=== PATIENT | male | born 1965 | race Two or more races ===

== ENCOUNTER → 2023-10-10 | Day surgery (SDC) | payer MEDICAID ==
[2023-10-03 09:39] LABS: Urine Bacteria None Seen /hpf (None Seen)
[2023-10-03 09:41] LABS: Basophils # (auto) 0 10 ^3/uL (0-0.2); Basophils % (auto) 0.3 % (0.0-2.0); Eosinophils # (auto) 0 10 ^3/uL (0-0.8); Eosinophils % (auto) 0.3 % (0.0-7.0); Hematocrit 44.9 % (41.0-53.0); Hemoglobin 14.7 g/dL (13.5-17.5); Lymphocytes # (auto) 2.3 10 ^3/uL (0.4-5.4); Lymphocytes % (auto) 30.6 % (10.0-50.0); Mean Corpuscular Hemoglobin 31.1 pg (28.0-32.0); Mean Corpuscular Hgb Conc. 32.7 g/dL (32.0-36.0); Mean Corpuscular Volume 95.2 fL (80.0-100.0); Monocytes # (auto) 0.6 10 ^3/uL (0-1.3); Monocytes % (auto) 7.6 % (0.0-12.0); Neutrophils # (auto) 4.6 10 ^3/uL (1.6-8.6); Neutrophils % (auto) 61.2 % (37.0-80.0); Nucleated Red Blood Cells % 0.1 %; Red Blood Cells 4.71 10^6/uL (4.5-5.90); Red Cell Distribution Width 12.8 % (11.8-14.3); White Blood Cell 7.4 10^3/uL (4.4-10.8)
[2023-10-03 10:03] LABS: INR 0.99 (0.9-1.15); Partial Thromboplastin Time 24.2 SEC (24.5-34.5); Prothrombin Time 10.4 sec (9.3-11.8)
[2023-10-03 10:04] LABS: Urine Blood Negative /uL (Negative); Urine Clarity Clear (Clear); Urine Color Light-Yellow (Yellow); Urine Protein, UAD Negative (Negative); Urine Specific Gravity 1.013 (1.001-1.035); Urine Urobilinogen Normal (Negative); Urine WBC <1 /hpf (0 - 3)
[2023-10-03 10:26] LABS: Alanine Aminotransferase 51 U/L (7-40); Albumin 4.2 g/dL (3.2-4.8); Alkaline Phosphatase 49 U/L (46-116); Anion Gap 6 (5-15); Aspartate Aminotransferase 22 U/L (13-40); BUN/Creatinine Ratio 10.3 (10.0-20.0); Blood Urea Nitrogen 12 mg/dL (9-23); Calcium 9.5 mg/dL (8.5-10.1); Carbon Dioxide 31 mmol/L (20-30); Chloride 103 mmol/L (98-107); Glucose 262 mg/dL (74-106); Potassium 4.2 mmol/L (3.5-5.1); Sodium 140 mmol/L (136-145)
[2023-10-03 10:27] LABS: Bilirubin, Total 0.6 mg/dL (0.2-1.0); Total Protein 6.6 g/dL (5.7-8.2)
[~2023-10-10] VITALS: Ht 167.6 cm; Wt 113.4 kg
[~2023-10-10] MED LIST: ASPI81CH43; CAPT12.52; GLYCOPYRROLATE 0.2 MG/ML 1ML VIAL ONE; LOSA-533 PO; METF-370; METH-562; MIDAZOLAM HCL 2MG/2ML 2ml VIAL (1mg/ml) ONE; OMEGCAP28; ONDANSETRON HCL 4 MG/2 ML VIAL ONE; PANT40T PO; PREDPOW63; PROPOFOL 10 MG/ML 20 ML IV ONE; [UNRECOGNIZED DRUG - CODE]; fentaNYL CITRATE 100 MCG/2 ML VL ONE
[2023-10-10 09:54] VITALS: TEMP 97.4; O2SAT 98
[2023-10-10 10:22] VITALS: BP 118/80; PULSE 81; RESP 14; O2SAT 94
== END | disposition home or self-care (01) ==
LOC: GI 08:11
PROVIDERS: ATTEND Internal Medicine Gastroenterology
DX: R12 Heartburn (principal); K29.50 Unspecified chronic gastritis without bleeding; I10 Essential (primary) hypertension; E11.9 Type 2 diabetes mellitus without complications; E78.5 Hyperlipidemia, unspecified; Z79.84 Long term (current) use of oral hypoglycemic drugs; Z79.899 Other long term (current) drug therapy; Z98.890 Other specified postprocedural states
CPT/HCPCS: 36415; 43239; 80053; 81001; 82962; 85025; 85610; 85730; 88305; 88312; 88342; J2250; J2405; J2704; J3010; J7030

== ENCOUNTER 2023-11-10 10:06 | Emergency (ER) | payer MEDICAID ==
[~2023-11-10] VITALS: Ht 170.2 cm; Wt 109.8 kg
[~2023-11-10 10:06] MED LIST changes: -GLYCOPYRROLATE 0.2 MG/ML 1ML VIAL ONE; -MIDAZOLAM HCL 2MG/2ML 2ml VIAL (1mg/ml) ONE; -ONDANSETRON HCL 4 MG/2 ML VIAL ONE; -PROPOFOL 10 MG/ML 20 ML IV ONE; -fentaNYL CITRATE 100 MCG/2 ML VL ONE
[2023-11-10 10:45] VITALS: BP 122/75; PULSE 102; RESP 18; TEMP 98.2; O2SAT 97
[2023-11-10 11:19] LABS: Urine Bacteria FEW /hpf (None Seen); Urine Blood Negative /uL (Negative); Urine Clarity Hazy (Clear); Urine Color Yellow (Yellow); Urine Hyaline Cast FEW /lpf (0 - 2); Urine Mucus FEW (None Seen); Urine Protein, UAD 1+ (Negative); Urine Specific Gravity 1.046 (1.001-1.035); Urine Urobilinogen 4 mg/dL (Negative); Urine WBC 5 /hpf (0 - 3)
[2023-11-10] MEDS ORDERED: NITR-87 PO (11:40)
[2023-11-10] MEDS ORDERED: ACYC400T16 PO (13:34)
[2023-11-12 11:07] LABS: RPR Non Reactive (Non Reactive)
[2023-11-12 16:06] LABS: Chlamydia Trachomatis, NAA Negative (Negative); Neisseria gonorrhoeae, NAA Negative (Negative)
== END 2023-11-10 11:48 | disposition home or self-care (01) ==
LOC: ER 10:13
DX: R21 Rash and other nonspecific skin eruption (principal); I10 Essential (primary) hypertension; E11.9 Type 2 diabetes mellitus without complications; Z79.899 Other long term (current) drug therapy
CPT/HCPCS: 81001; 86592; 86703

== ENCOUNTER 2024-08-11 10:09 | Inpatient (IN) | payer MEDICAID ==
[~2024-08-11] VITALS: Ht 165.1 cm; Wt 96.5 kg
[~2024-08-11 10:09] MED LIST changes: +ACYC400T16 PO; +NITR-87 PO
--- NOTE | 2024-08-11 10:44 | ED.PDOC ---
Back pain HPI HPI Comments 59 y/o M, with PMHX of HTN and DM presents to the ED for CC of back pain. Patient states, that he has been experiencing lumbar back pain that radiates to his upper back since 08/04/24 with associated symptoms of constipation and dysuria. Patient comments on, using a forklift at work daily and when unloading the forklift it bounces back causing pain to his lower back. Patient denies trauma, musculoskeletal strain, nausea, vomiting, or diarrhea. No other symptoms or modifying factors at this time. Chief Complaint: Back Pain Time Seen by MD: 10:30 Primary Care Provider: MAEGAN Reviewed Notes: Nurses Notes, Medications, Allergies Allergies: Coded Allergies: NO KNOWN ALLERGIES (Unverified , 02/04/12) Home Meds Active Scripts Acyclovir (ZOVIRAX TABLET) 400 Mg Tb, 2 TAB PO TID for 5 Days, #30 TAB 0 Refills Prov:TONIA MANRIQUE CLINICAL RESEARCH ASSISTANT 11/10/23 Nitrofurantoin Monohydrate Mac (Macrobid) 100 Mg Cap, 100 MG PO BID for 5 Days, #10 CAP 0 Refills Prov:TONIA MANRIQUE CLINICAL RESEARCH ASSISTANT 11/10/23 Reported Medications Losartan Potassium (Losartan Potassium) 25 Mg Tab, 25 MG PO DAILY, TAB 10/02/23 Pantoprazole Sodium Sesquihydr (Pantoprazole Sodium) 40 Mg Tab, 40 MG PO DAILY, TAB 10/02/23 Belladonna Alkaloids-Phenobarb (QUADRAPAX) Elx 02/04/12 Dawn 3 Fatty Acids-Dawn 6 Fa (OMEGA 3-6-9 COMPLEX) Complex Cap 02/04/12 Captopril (Captopril) Unknown Strength Tab 02/04/12 Metformin Hydrochloride (Metformin Hcl) 500 Mg Tab, DAILY 02/04/12 Methocarbamol (Robaxin) 500 Mg Tab 02/04/12 Aspirin (Asa) 81 Mg Ch 02/04/12 [Prednisone] (Prednisone) No Conflict Check 02/04/12 Information Source: Patient Mode of Arrival: Ambulatory Timing: Days Duration: Since onset Location of Back pain: (B) Lumbar, (B) Thoracic, (B) Upper back Severity: Moderate Prehospital treatment: None Onset: Spontaneous Associated signs and symptoms: Dysuria Past Medical History PAST MEDICAL HISTORY: DM, HTN Surgical History: Denies all surgeries Family History Family History: Family hx of Cancer Social History Smoker: Non-Smoker Alcohol: Denies ETOH Use Drugs: Denies Drug Use Lives In: Home Constitutional: denies: chills, diaphoresis, fatigue, fever, malaise, sweats, weakness, others EENTM: denies: blurred vision, double vision, ear bleeding, ear discharge, ear drainage, ear pain, ear ringing, eye pain, eye redness, hearing loss, mouth pain, mouth swelling, nasal discharge, nose bleeding, nose congestion, nose pain, photophobia, tearing, throat pain, throat swelling, voice changes, others Respiratory: denies: cough, hemoptysis, orthopnea, SOB at rest, shortness of breath, SOB with excertion, stridor, wheezing, others Cardiovascular: denies: chest pain, dizzy spells, diaphoresis, Dyspnea on exertion, edema, irregular heart beat, left arm pain, lightheadedness, palpitations, PND, syncope, others Gastrointestinal: denies: abdomen distended, abdominal pain, blood streaked bowels, constipated, diarrhea, dysphagia, difficulty swallowing, hematemesis, melena, nausea, poor appetite, poor fluid intake, rectal bleeding, rectal pain, vomiting, others Genitourinary: reports: dysuria; denies: burning, flank pain, frequency, hematuria, incontinence, penile discharge, penile sore, pain, testicle pain, testicle swelling, urgency, others Neurological: denies: dizziness, fainting, headache, left sided numbness, left sided weakness, numbness, paresthesia, pre-existing deficit, right sided numbness, right sided weakness, seizure, speech problems, tingling, tremors, weakness, others Musculoskeletal: reports: back pain; denies: gout, joint pain, joint swelling, muscle pain, muscle stiffness, neck pain, others Integumetry: denies: bruises, change in color, change in hair/nails, dryness, laceration, lesions, lumps, rash, wounds, others Allergic/Immunocompromised: denies: Difficulty Healing, Frequent Infections, Hives, Itching, others Hematologic/Lymphatic: denies: anemia, blood clots, easy bleeding, easy bruising, swollen glands, others Endocrine: denies: excessive hunger, excessive sweating, excessive thirst, excessive urination, flushing, intolerance to cold, intolerance to heat, unexplained weight gain, unexplained weight loss, others Psychiatric: denies: anxiety, bipolar disorder, depression, hopeless, panic disorder, schizophrenia, sleepless, suicidal, others All Other Systems: Reviewed and Negative Physical Exam General Appearance: Moderate Distress HEENT: Normal ENT Inspection, Pharynx Normal, TMs Normal Neck: Full Range of Motion, Non-Tender, Normal, Normal Inspection Respiratory: Chest Non-Tender, Lungs Clear, No Accessory Muscle Use, No Respiratory Distress, Normal Breath Sounds Cardiovascular: No Edema, No JVD, No Murmur, No Gallop, Normal Peripheral Pulses, Regular Rate/Rhythm Breast Exam: Deferred Gastrointestinal: No Organomegaly, Non Tender, No Pulsatile Mass, Normal Bowel Sounds, Soft Genitalia: Deferred Pelvic: Deferred Rectal: Deferred Extremities: No calf tenderness, Normal capillary refill, No pedal edema Musculoskeletal : Apperance: Normal Neurologic: Alert, ultrasound applications specialist II-XII nml as Tested, No Motor Deficits, Normal Affect, Normal Mood, No Sensory Deficits Cerebellar Function: Normal Reflexes: Normal Skin: Dry, Normal Color, Warm Lymphatic: No Adenopathy Was a procedure done? Was a procedure done?: No Back Pain Differential Dx Differential Diagnosis: Musculoskeletal Pain, Pyelonephritis, Urolithiasis X-Ray, Labs, Meds, VS Vital Signs Date Time Temp Pulse Resp B/P (MAP) Pulse Ox O2 Delivery O2 Flow Rate FiO2 08/11/24 12:05 Room Air* 0 21 08/11/24 10:14 97.8 115 20 92/54 (67) 99 Lab Test 08/11/24 10:34 Range/Units White Blood Count 22.3 H 4.4-10.8 10^3/uL Red Blood Count 4.60 4.5-5.90 10^6/uL Hemoglobin 13.8 13.5-17.5 g/dL Hematocrit 42.0 41.0-53.0 % Mean Corpuscular Volume 91.4 80.0-100.0 fL Mean Corpuscular Hemoglobin 30.1 28.0-32.0 pg Mean Corpuscular Hemoglobin Concent 32.9 32.0-36.0 g/dL Red Cell Distribution Width 13.3 11.8-14.3 % Platelet Count 434 140-450 10^3/uL Mean Platelet Volume 7.4 6.9-10.8 fL Neutrophils (%) (Auto) 37.0-80.0 % Lymphocytes (%) (Auto) 10.0-50.0 % Monocytes (%) (Auto) 0.0-12.0 % Basophils (%) (Auto) 0.0-2.0 % Neutrophils # (Auto) 1.6-8.6 10 ^3/uL Lymphocytes # (Auto) 0.4-5.4 10 ^3/uL Monocytes # (Auto) 0-1.3 10 ^3/uL Differential Total Cells Counted Pending Neutrophils % (Manual) Pending Band Neutrophils % (Manual) Pending Lymphocytes % (Manual) Pending Monocytes % (Manual) Pending Eosinophils % (Manual) Pending Basophils % (Manual) Pending Metamyelocytes % (manual) Pending Myelocytes % (Manual) Pending Promyelocytes % (Manual) Pending Blast Cells % (Manual) Pending Reactive Lymphocytes Pending Platelet Estimate Pending Sodium Level 137 136-145 mmol/L Potassium Level 3.9 3.5-5.1 mmol/L Chloride Level 101 98-107 mmol/L Carbon Dioxide Level 26 20-31 mmol/L Anion Gap 10 5-15 Blood Urea Nitrogen 20 9-23 mg/dL Creatinine 1.30 0.700-1.30 mg/dL Glomerular Filtration Rate Calc 63 >90 mL/min BUN/Creatinine Ratio 15.4 10.0-20.0 Serum Glucose 186 H 74-106 mg/dL Calcium Level 9.7 8.7-10.4 mg/dL Current Medications Medications (Trade) Dose Ordered Sig/Canelo Route Start Time Stop Time Status Last Admin Ketorolac Tromethamine (Toradol Injection) 60 mg ONCE ONCE IM 08/11/24 10:45 08/11/24 10:46 DC 08/11/24 11:37 CT ABD PEL: FINDINGS: Lower Chest: Base of the lungs are clear. The heart is normal in size. Coronary artery calcification. Hepatobiliary: Hepatomegaly and hepatic steatosis. Slight nodular liver contour. No calcified gallstone. No intrahepatic or extrahepatic ductal dilatation. Spleen: Unremarkable. Pancreas: Unremarkable. Adrenal Glands: Unremarkable. tract: The kidneys are normal in size bilaterally without hydronephrosis or nephrolithiasis. The urinary bladder is unremarkable. GI tract: The stomach is grossly normal in appearance. No evidence of small bowel obstruction. The large bowel is unremarkable. A large, 12.1 x 6.3 x 8.5 cm complex fluid and air collection noted adjacent to the rectum with surrounding inflammation likely an abscess. A 5.1 x 1.5 cm perianal fluid collection is seen likely an abscess or fistula. The appendix is normal. Lymphatics: No mesenteric, retroperitoneal or periportal lymphadenopathy. Vasculature: The abdominal aorta is normal in in caliber. Pelvic Organs: Unremarkable Bones/soft tissues: No acute abnormality. Other: None. IMPRESSION: 1. Large, 12.1 x 8.5 cm complex fluid and air collection adjacent to the rectum concerning for an abscess. Evaluation is limited without IV contrast. Recommend further evaluation with pelvic CT scan with IV contrast or pelvic MRI without and with IV contrast. 2. A 5.1 x 1.5 cm right perianal fluid collection that may represent a fistula or abscess. This can be better delineated in the contrast-enhanced study. ATED BY: DODIE CROSS MD DICTATED DATE/TIME: 08/11/24 112 SIGNED BY: DODIE CROSS MD SIGNED DATE/TIME: 08/11/24 112 CC: IV Hep-Lock was established. We are concerned that this is an abscess. We are getting a CT scan with IV contrast to rule out possible abscess. The CBC shows an elevated white blood cell count of 22.3 The rest of the CBC is within normal limits The chemistry panel is within normal limits The patient was given initially Toradol 60 mg IM The patient was being admitted at this time with what seems to be a perirectal abscess Images Reviewed?: Images reviewed and evaluated by me Time of 1ST Reevaluation: 11:00 Reevaluation 1ST: Unchanged Patient Education/Counseling: Diagnosis, Treatment, Prognosis Family Education/Counseling: No Family Present Departure 1 Departure Time of Disposition: 12:29 Impression: Primary Impression: Perirectal abscess Additional Impression: Intractable back pain Disposition: ADMITTED INPATIENT Admit to: Med Surg Condition: Fair Critical Care Note Critical Care Time?: No Stability Stability form required: Yes Unstable for transfer: ED Physician Assesment (Clinical assesment) Heart Score Heart Score: Heart Score Response (Comments) Value History N/A 0 EKG N/A 0 Age N/A 0 Risk Factors N/A 0 Troponin N/A 0 Total 0 I personally scribed for MARTIN ERWIN MD ([email or web address]) on 08/11/24 at 10:44. Electronically submitted by Karen Mclaughlin ([email or web address]). I personally scribed for MARTIN ERWIN MD ([email or web address]) on 08/11/24 at 11:37. Electronically submitted by Karen Mclaughlin ([email or web address]). MARTIN ERWIN MD Aug 11, 2024 10:44
[2024-08-11 11:18] LABS: Hemoglobin 13.8 g/dL (13.5-17.5); Mean Corpuscular Hemoglobin 30.1 pg (28.0-32.0); Mean Corpuscular Hgb Conc. 32.9 g/dL (32.0-36.0); Mean Corpuscular Volume 91.4 fL (80.0-100.0); Platelet Count (auto) 434 10^3/uL (140-450); Red Cell Distribution Width 13.3 % (11.8-14.3); White Blood Cell 22.3 10^3/uL (4.4-10.8)
--- NOTE | 2024-08-11 11:25 | DVH ---
Procedure: CT CT AB PEL WO CON-NO ORAL OR IV 08/11/2024 10:38 AM Indication: pain Comparison Study: None Technique: Axial images were obtained and reformatted in coronal and sagittal planes. All CT scans at this medical facility are performed using dose modulation techniques as appropriate to a performed e xam including the following: Automated exposure control was utilized; adjustment of the MA and/or KV according to patient size; and use of iterative reconstruction technique. CT Dose: CTDI volume is 20 mGy. Dose-length product is 1369 mGy*cm FINDINGS: Lower Chest: Base of the lungs are clear. The heart is normal in size. Coronary artery calcification. Hepatobiliary: Hepatomegaly and hepatic steatosis. Slight nodular liver contour. No calcified gallsto ne. No intrahepatic or extrahepatic ductal dilatation. Spleen: Unremarkable. Pancreas: Unremarkable. Adrenal Glands: Unremarkable. tract: The kidneys are normal in size bilaterally without hydronephrosis or nephrolithiasis. The u rinary bladder is unremarkable. GI tract: The stomach is grossly normal in appearance. No evidence of small bowel obstruction. The la rge bowel is unremarkable. A large, 12.1 x 6.3 x 8.5 cm complex fluid and air collection noted adjace nt to the rectum with surrounding inflammation likely an abscess. A 5.1 x 1.5 cm perianal fluid colle ction is seen likely an abscess or fistula. The appendix is normal. Lymphatics: No mesenteric, retroperitoneal or periportal lymphadenopathy. Vasculature: The abdominal aorta is normal in in caliber. Pelvic Organs: Unremarkable Bones/soft tissues: No acute abnormality. Other: None. IMPRESSION: 1. Large, 12.1 x 8.5 cm complex fluid and air collection adjacent to the rectum concerning for an abs cess. Evaluation is limited without IV contrast. Recommend further evaluation with pelvic CT scan w ith IV contrast or pelvic MRI without and with IV contrast. 2. A 5.1 x 1.5 cm right perianal fluid collection that may represent a fistula or abscess. This can b e better delineated in the contrast-enhanced study.
[2024-08-11] MEDS: KETOROLAC TROMETH 60MG/2ML VIAL IM ONE (11:37)
[2024-08-11 12:07] LABS: Basophils % (manual) 0 (0.0-2.0); Blast Cells 0; Eosinophils % (manual) 0 (0-7); Metamyelocytes % 0; Myelocytes % 0; Promyelocytes % 0; Reactive Lymphocytes 0
[2024-08-11 12:08] LABS: Chloride 101 mmol/L (98-107); Potassium 3.9 mmol/L (3.5-5.1); Sodium 137 mmol/L (136-145)
[2024-08-11 12:09] LABS: Anion Gap 10 (5-15); Calcium 9.7 mg/dL (8.7-10.4); Carbon Dioxide 26 mmol/L (20-31)
[2024-08-11 12:14] LABS: BUN/Creatinine Ratio 15.4 (10.0-20.0); Blood Urea Nitrogen 20 mg/dL (9-23)
[2024-08-11 12:15] LABS: Glucose 186 mg/dL (74-106)
[2024-08-11] MEDS: VANCOMYCIN 1GM/250ML KIT 250 ML IV ONE (12:46)
[2024-08-11] MEDS: metroNIDAZOLE 500MG/100ML 100 ML IV ONE (12:46)
[2024-08-11] MEDS: IOHEXOL 300 MG/ML 100ML BOTTLE IJ ONE (12:48)
--- NOTE | 2024-08-11 13:15 | DVH ---
Exam: CT CT AB PEL WITH IV CON ONLY History: Possible abscess TECHNIQUE: A digital spiral spring winder image was obtained. During the uneventful, intravenous administration of c ontrast material, multislice data acquisition was obtained through the abdomen and pelvis. The data s et was subsequently reconstructed into axial images. Images were reviewed on a work station using a c ombination of axial and multiplanar using a variety of window levels and settings. 100 cc of Omnipaqu e 300 contrast was injected intravenously. All CT scans at this medical facility are performed using dose modulation techniques as appropriate t o a performed exam including the following:Automated exposure control was utilized; adjustment of the MA and/or KV according to patient size; and use of iterative reconstruction technique. Radiation Dose Information: CT Dose: CTDI volume is 23 mGy. Dose-length product is 16 17 mGy*cm Comparison: None FINDINGS: There is a an approximately 12.5 x 8.1 by 9.2 cm (AP by transverse by cc) loculated abscess with flui d, pockets of air and enhancing mayes in the inferior pelvis adjacent to the rectum and anus. There is inferior extension of the abscess into the posterior perineum. The small and large bowel loops dem onstrate normal caliber. There is no significant mount free fluid or free air. There is diffuse fatty infiltration of the liver. The gallbladder, pancreas, kidneys, adrenal glands, and spleen appear within normal limits. There is no evidence of abdominal lymphadenopathy. The stomach grossly appears unremarkable. The abdominal aorta and IVC appear within normal limits. The bladder appears within normal limits the degree of distention. There is no evidence of a pelvic mass or lymphadenopathy. Lung bases are clear. There is no acute osseous abnormality. IMPRESSION: 1. Approximately 12.5 x 8.1 cm loculated abscess in the inferior pelvis adjacent to the rectum and an us with inferior extension into the posterior perineum. Consider treatment with CT guided aspiration . 2. Hepatic steatosis. HS:Y
[2024-08-11 14:25] LABS: Band Neutrophils % (manual) 2; Lymphocytes % (manual) 11 (10.0-50.0); Monocytes % (manual) 5 (0-12)
[2024-08-11 14:26] LABS: Platelet Estimate Adequate
[2024-08-11] MEDS ORDERED: ONDANSETRON HCL 4 MG/2 ML VIAL IV PRN (15:15)
[2024-08-11] MEDS ORDERED: HYDROcodone-ACET 5/325MG TAB PO PRN (15:15)
[2024-08-11] MEDS ORDERED: DEXTROSE (50%) 50ML SYRG IV PRN ×2 (15:15→15:30)
[2024-08-11] MEDS ORDERED: MORPHINE SULFATE INJ 2 MG/ml SYRG IV PRN (15:15)
[2024-08-11] MEDS ORDERED: DOCUSATE SOD 100 MG CAP PO PRN (15:15)
[2024-08-11] MEDS ORDERED: ACETAMINOPHEN 325 MG TAB PO PRN (15:15)
[2024-08-11] MEDS ORDERED: METF-371 PO (15:19)
[2024-08-11] MEDS ORDERED: ATOR20TA50 PO (15:19)
[2024-08-11] MEDS ORDERED: VANCOMYCIN PER PHARMACY 0 MG IV SCH (16:00)
--- NOTE | 2024-08-11 16:10 | DVHHP2 ---
History of Present Illness Reason for Visit: Low back/buttock pain History of Present Illness Yves Somers is a 59-year-old male with past medical history of hypertension, hyperlipidemia, arthritis, and diabetes who came in for low back/buttock pain. Patient states his symptoms began about 2 weeks ago with painful urination, then about a week ago his back pain began, and now his pain has worsened and progressed to his buttock 3 days ago. Patient also states he has not had a bowel movement for 3 days. Patient's pain has increased to the point that he is unable to sit. CT of abd/pelvis revealed a large perrectal abscess. IR was notified and and agreed to take the patient tomorrow morning for abscess drainage and possible drain placement. Cardiovascular: HTN, hyperipidemia Musculoskeletal: Osteoarthritis Endocrine: Diabetes Past Surgical History: Hernia Repair Smoke: No ALCOHOL: none Drugs: None Lives: with Family Domestic Violence: Neg Review of Systems Constitutional: No: Fever, Chills, Sweats, Weakness, Malaise, Other Eyes: No: Pain, Vision change, Conjunctivae inflammation, Eyelid inflammation, Other, Redness ENT: No: Ear pain, Ear discharge, Nose pain, Nose discharge, Nose congestion, Mouth pain, Mouth swelling, Throat pain, Throat swelling, Other Respiratory: No: Cough, Dry, Shortness of breath, SOB with excertion, Wheezing, Hemoptysis, Pleuritic Pain, Sputum, Wheezing, Other Cardiovascular: No: Chest Pain, Palpitations, Orthopnea, Paroxysmal Noc. Dyspnea, Edema, Lt Headedness, Other Gastrointestinal: Constipation; No: Nausea, Vomiting, Abdominal Pain, Diarrhea, Melena, Hematochezia, Other Genitourinary: No Dysuria, No Frequency, No Incontinence, No Hematuria, No Retention, No Other Musculoskeletal: back pain (low back/buttock pain); No: other, neck pain, shoulder pain, arm pain, hand pain, leg pain, foot pain Skin: No: Rash, Lesions, Jaundice, Bruising, Other Neurological: No: Weakness, Numbness, Incoordination, Change in speech, Confusion, Seizures, Other Allergies: Coded Allergies: NO KNOWN ALLERGIES (Unverified , 02/04/12) Medications Current Medications Medications Dose Ordered Sig/Canelo Route Start Time Stop Time Status Last Admin Dose Admin Sodium Chloride 10 ml Q8HR IV 08/11/24 22:00 UNV Ondansetron HCl 4 mg Q4HP PRN IV 08/11/24 15:30 UNV Morphine Sulfate 2 mg Q4HPRN PRN IV 08/11/24 15:30 UNV Insulin Human Regular HS SC 08/11/24 22:00 UNV Insulin Human Regular AC SC 08/11/24 17:00 UNV Dextrose 50 ml UD PRN IV 08/11/24 15:30 UNV Acetaminophen/ Hydrocodone Bitart 1 tab Q4HP PRN PO 08/11/24 15:30 UNV Docusate Sodium 100 mg BIDPRN PRN PO 08/11/24 15:30 UNV Acetaminophen 650 mg Q6HP PRN PO 08/11/24 15:30 UNV Diagnostic Test (Pha) 1 strip ACHS 08/11/24 17:00 UNV Exam Vital Signs Vital Signs Date Time Temp Pulse Resp B/P (MAP) Pulse Ox O2 Delivery O2 Flow Rate FiO2 08/11/24 12:05 Room Air* 0 21 08/11/24 10:14 97.8 115 20 92/54 (67) 99 General Appearance: Alert, Oriented X3, Cooperative, moderate distress HEENT: Atraumatic, PERRLA, Mucous membr. moist/pink Respiratory: Clear to auscultation, Normal air movement Cardiovascular: Normal S1, Normal S2, No murmurs, Other (Tachycardia) Abdominal: Normal bowel sounds, Soft, No tenderness Extremities: No clubbing, No cyanosis, No edema, Normal pulses, No tenderness/swelling, Other (low back/buttock pain and swelling) Skin: No rashes, No breakdown, No significant lesion Neuro: Normal gait, Normal speech, Strength at 5/5 X4 ext, Normal tone Psych/Mental Status: Mental status NL, Mood NL Labs/Xrays Labs Test 08/11/24 13:00 08/11/24 10:34 Range/Units Lactic Acid Level 1.4 0.4-2.0 mmol/L White Blood Count 22.3 H 4.4-10.8 10^3/uL Red Blood Count 4.60 4.5-5.90 10^6/uL Hemoglobin 13.8 13.5-17.5 g/dL Hematocrit 42.0 41.0-53.0 % Mean Corpuscular Volume 91.4 80.0-100.0 fL Mean Corpuscular Hemoglobin 30.1 28.0-32.0 pg Mean Corpuscular Hemoglobin Concent 32.9 32.0-36.0 g/dL Red Cell Distribution Width 13.3 11.8-14.3 % Platelet Count 434 140-450 10^3/uL Mean Platelet Volume 7.4 6.9-10.8 fL Neutrophils (%) (Auto) 37.0-80.0 % Lymphocytes (%) (Auto) 10.0-50.0 % Monocytes (%) (Auto) 0.0-12.0 % Basophils (%) (Auto) 0.0-2.0 % Neutrophils # (Auto) 1.6-8.6 10 ^3/uL Lymphocytes # (Auto) 0.4-5.4 10 ^3/uL Monocytes # (Auto) 0-1.3 10 ^3/uL Differential Total Cells Counted 100.0 100 Neutrophils % (Manual) 82 H 37.0-80.0 Band Neutrophils % (Manual) 2 Lymphocytes % (Manual) 11 10.0-50.0 Monocytes % (Manual) 5 0-12 Eosinophils % (Manual) 0 0-7 Basophils % (Manual) 0 0.0-2.0 Metamyelocytes % (manual) 0 Myelocytes % (Manual) 0 Promyelocytes % (Manual) 0 Blast Cells % (Manual) 0 Reactive Lymphocytes 0 Platelet Estimate Adequate Sodium Level 137 136-145 mmol/L Potassium Level 3.9 3.5-5.1 mmol/L Chloride Level 101 98-107 mmol/L Carbon Dioxide Level 26 20-31 mmol/L Anion Gap 10 5-15 Blood Urea Nitrogen 20 9-23 mg/dL Creatinine 1.30 0.700-1.30 mg/dL Glomerular Filtration Rate Calc 63 >90 mL/min BUN/Creatinine Ratio 15.4 10.0-20.0 Serum Glucose 186 H 74-106 mg/dL Calcium Level 9.7 8.7-10.4 mg/dL Exam: CT CT AB PEL WITH IV CON ONLY FINDINGS: There is a an approximately 12.5 x 8.1 by 9.2 cm (AP by transverse by cc) loculated abscess with fluid, pockets of air and enhancing mayes in the inferior pelvis adjacent to the rectum and anus. There is inferior extension of the abscess into the posterior perineum. The small and large bowel loops demonstrate normal caliber. There is no significant mount free fluid or free air. There is diffuse fatty infiltration of the liver. The gallbladder, pancreas, kidneys, adrenal glands, and spleen appear within normal limits. There is no evidence of abdominal lymphadenopathy. The stomach grossly appears unremarkable. The abdominal aorta and IVC appear within normal limits. The bladder appears within normal limits the degree of distention. There is no evidence of a pelvic mass or lymphadenopathy. Lung bases are clear. There is no acute osseous abnormality. IMPRESSION: 1. Approximately 12.5 x 8.1 cm loculated abscess in the inferior pelvis adjacent to the rectum and anus with inferior extension into the posterior perineum. Consider treatment with CT guided aspiration. 2. Hepatic steatosis. Assessment/Plan Assessment/Plan Assessment: Perirectal abscess, Leukocytosis, Uncontrolled diabetes, Hypertension, Plan: Admit to Med-Surg, Consult IR for abscess drainage, Consider surgical consult if IR unable to drain abscess, IV antibiotics, Blood cultures, IV hydration, Plan discussed with: Patient My Orders Orders - SANIA MCLEOD [employer] Procedure Category Date Status Time * Radiologist Consult CONS 08/11/24 Transmitted 15:12 Admit ADMIT 08/11/24 Transmitted 15:13 Code Status CODE 08/11/24 Transmitted 15:13 2 Gm Sodium Diet DIET 08/11/24 Transmitted Dinner Complete Blood Count LAB 08/12/24 Verified 04:00 Comprehensive LAB 08/12/24 Verified Metabolic Panel 04:00 Condition: Serious DEBRA 08/11/24 In Process 15:13 Sodium Chloride Lock PHA 08/11/24 Logged (Saline Lock Ns) 22:00 Ondansetron Hcl PHA 08/11/24 Logged (Zofran) 15:30 Morphine Sulfate PHA 08/11/24 Logged Injection 15:30 Insulin R (Human) PHA 08/11/24 Logged (Insulin R) 22:00 Insulin R (Human) PHA 08/11/24 Logged (Insulin R) 17:00 Dextrose 50% Syringe PHA 08/11/24 Logged 15:30 Hydrocodone-Acet PHA 08/11/24 Logged 5/325mg Tab ([place] 15:30 Docusate Sodium PHA 08/11/24 Logged Capsule (Colace 15:30 Acetaminophen Tablet PHA 08/11/24 Logged (Tylenol Tablet) 15:30 Glucose Blood PHA 08/11/24 Logged (Accu-Chek Comfort 17:00 Date of Service: Aug 11, 2024 Billing Provider: SANIA MCLEOD Common Visit Codes: [id number] INP/OBS CARE (MOD) SANIA MCLEOD Aug 11, 2024 16:10
[2024-08-11] MEDS ORDERED: InsuLIN REG 1unit/0.01ml Soln (100units/ml) SC SCH ×2 (17:00→22:00)
[2024-08-11] MEDS ORDERED: ACCU-CHEK COMFORT CURVE STRIP VI SCH (17:00)
[2024-08-11] MEDS: ACCU-CHEK COMFORT CURVE STRIP VI SCH (17:00)
[2024-08-11] MEDS: SODIUM CHLORIDE 0.9% 1,000 ML IV ONE (19:03)
[2024-08-11] MEDS: InsuLIN REG 1unit/0.01ml Soln (100units/ml) SC SCH ×2 (19:06→22:00)
[2024-08-11 19:09] LABS: Urine Bacteria None Seen /hpf (None Seen)
[2024-08-11 19:43] LABS: Urine Blood Negative /uL (Negative); Urine Clarity Clear (Clear); Urine Color Light-Yellow (Yellow); Urine Protein, UAD TRACE (Negative); Urine Squamous Epithelial Cell FEW /hpf (<5); Urine Urobilinogen Normal (Negative); Urine WBC 23 /HPF (0-3)
[2024-08-11 22:00] VITALS: PULSE 93; RESP 18; O2SAT 95
[2024-08-11] MEDS ORDERED: SODIUM CHLOR 0.9% PF (SALINE LOCK) 10ML VIAL/SYR IV SCH (22:00)
[2024-08-11] MEDS: SODIUM CHLOR 0.9% PF (SALINE LOCK) 10ML VIAL/SYR IV SCH (23:37)
[2024-08-11] MEDS: ATORVASTATIN 20 MG TAB PO SCH (23:42)
[2024-08-11] MEDS: PIPERACILLIN-TAZOB 3.375GM 100 ML IV SCH (23:48)
[2024-08-12] VITALS (7 sets, daily range): BP systolic 90–133; BP diastolic 42–60; PULSE 68–119; RESP 17–20; TEMP 98–100.7; O2SAT 94–100
[2024-08-12] MEDS: VANCOMYCIN 1GM/250ML KIT 250 ML IV SCH (03:17)
[2024-08-12] MEDS ORDERED: OMEP20TA PO (06:31)
[2024-08-12 07:09] LABS: Basophils # (auto) 0 10 ^3/uL (0-0.2); Basophils % (auto) 0.1 % (0.0-2.0); Eosinophils # (auto) 0 10 ^3/uL (0-0.8); Eosinophils % (auto) 0.1 % (0.0-7.0); Hematocrit 38.2 % (41.0-53.0); Lymphocytes # (auto) 2.5 10 ^3/uL (0.4-5.4); Lymphocytes % (auto) 11.3 % (10.0-50.0); Mean Corpuscular Hemoglobin 30.8 pg (28.0-32.0); Mean Corpuscular Hgb Conc. 33.9 g/dL (32.0-36.0); Mean Corpuscular Volume 90.8 fL (80.0-100.0); Monocytes # (auto) 1.5 10 ^3/uL (0-1.3); Monocytes % (auto) 6.8 % (0.0-12.0); Neutrophils # (auto) 18.4 10 ^3/uL (1.6-8.6); Neutrophils % (auto) 81.7 % (37.0-80.0); Platelet Count (auto) 352 10^3/uL (140-450); Red Cell Distribution Width 13.6 % (11.8-14.3); White Blood Cell 22.4 10^3/uL (4.4-10.8)
[2024-08-12 07:15] LABS: Alanine Aminotransferase 80 U/L (7-40); Albumin 3.6 g/dL (3.2-4.8); Alkaline Phosphatase 156 U/L (46-116); Anion Gap 12 (5-15); BUN/Creatinine Ratio 17.5 (10.0-20.0); Blood Urea Nitrogen 20 mg/dL (9-23); Calcium 9.2 mg/dL (8.7-10.4); Carbon Dioxide 25 mmol/L (20-31); Chloride 94 mmol/L (98-107); Glucose 181 mg/dL (74-106); Potassium 3.7 mmol/L (3.5-5.1); Sodium 131 mmol/L (136-145); Total Protein 6.2 g/dL (5.7-8.2)
[2024-08-12 07:16] LABS: Aspartate Aminotransferase 69 U/L (13-40); Bilirubin, Total 0.9 mg/dL (0.2-1.0)
[2024-08-12] MEDS: MORPHINE SULFATE INJ 2 MG/ml SYRG IV PRN (08:05)
[2024-08-12] MEDS: LOSARTAN POTASSIUM 25 MG TAB PO SCH (10:00)
[2024-08-12] MEDS: LIDOCAINE 2%HCL (LOCAL ANESTH.) INJ 10ml MDV ONE (10:25)
[2024-08-12] MEDS: fentaNYL CITRATE 100 MCG/2 ML VL IV ONE (10:30)
[2024-08-12] MEDS: MIDAZOLAM HCL 2MG/2ML 2ml VIAL (1mg/ml) IV ONE (10:30)
--- NOTE | 2024-08-12 12:12 | DVH ---
CT PELVIS WO CONTRAST, HISTORY: PERIRECTAL ABSCESS DRAIN COMPARISON: None PROCEDURE: Informed consent was obtained. The patient was placed prone on the CT scanner. IV sedation was administered. The fluid collection was localized under CT scan and the overlying skin prepped wi th chlorhexidine which was allowed to dry and draped in the usual sterile fashion and infiltrated wit h Xylocaine. Time out was performed. With CT guidance, a 19-gauge centesis needle catheter was advanc ed via gluteal approach into the fluid collection. Following aspiration of a small amount of fluid, a 0.035 wire was advanced into the fluid collection. Placement was confirmed with CT scan. After seria l dilatation, a 10 Albanian multipurpose pigtail drain was placed into the collection. Approximately 19 0 cc of fould purulent fluid was aspirated, with specimen sent for appropriate laboratory/cytology/la boratory and cytology evaluation. The drain was sutured at the skin surface and connected to suction drainage. No immediate complication was noted. DLP = 2373 mGy-cm. SEDATION: Dr. Casi Alexandre was personally responsible for the administration of moderate sedation during the procedure performed, including the use of an independent trained observer who had no other duties during the procedure. The drugs utilized were IV fentanyl and versed (see nursing log for details). The total time of supervision by the attending physician was approximately 45 minutes. FINDINGS: Limited CT scan of through the pelvis demonstrates a large sized fluid collection in the re ctal area. Collection appears complex. Post procedure scan shows pigtail drain within the collection. No immediate complication was identified. IMPRESSION: CT guided placement of 10 Albanian pigtail drain into a perirectal abscess with 190 mL foul purulent fl uid removed. PLAN: Routine tube care.
[2024-08-12] MEDS: HYDROcodone-ACET 5/325MG TAB PO PRN (14:32)
[2024-08-12] MEDS: POLYETHYLENE GLYCOL 17 GM PWDR PO PRN (16:50)
[2024-08-12] MEDS: DOCUSATE SOD 100 MG CAP PO PRN (16:50)
--- NOTE | 2024-08-12 17:46 | DVHPN2 ---
Subjective in bed resting and feeling well Changes from previous H/P or p: No Changes Eyes: No Pain, No Vision change, No Conjunctivae inflammation, No Eyelid inflammation, No Other, No Redness ENT: No Ear pain, No Ear discharge, No Nose pain, No Nose discharge, No Nose congestion, No Mouth pain, No Mouth swelling, No Throat pain, No Throat swelling, No Other Cardiovascular: No Chest Pain, No Palpitations, No Orthopnea, No Paroxysmal Noc. Dyspnea, No Edema, No Lt Headedness, No Other Respiratory: No Cough, No Dry, No Shortness of breath, No SOB with excertion, No Wheezing, No Hemoptysis, No Pleuritic Pain, No Sputum, No Other Gastrointestinal: No Nausea, No Vomiting, No Abdominal Pain, No Diarrhea; C onstipation; No Melena, No Hematochezia, No Other Genitourinary: No Dysuria, No Frequency, No Incontinence, No Hematuria, No Retention, No Other Musculoskeletal: No other, No neck pain, No shoulder pain, No arm pain; back pain (low back/buttock pain); No hand pain, No leg pain, No foot pain Skin: No Rash, No Lesions, No Jaundice, No Bruising, No Other Objective Vitals Vital Signs Date Time Temp Pulse Resp B/P (MAP) Pulse Ox O2 Delivery O2 Flow Rate FiO2 08/12/24 16:57 98.2 84 17 92/50 (64) 97 98.2 08/12/24 08:00 Room Air* 0 21 Intake/Output Intake and Output 08/12/24 07:00 Intake Total 800 ml Balance 800 ml IV Total 800 ml General Appearance: Alert, Oriented X3 Lungs: Clear to auscultation Cardiovascular: Regular rate, Normal S1, Normal S2 Medications Current Medications Medications Dose Ordered Sig/Canelo Route Start Time Stop Time Status Last Admin Dose Admin Sodium Chloride 10 ml Q8HR IV 08/11/24 22:00 08/12/24 14:47 10 ML Ondansetron HCl 4 mg Q4HP PRN IV 08/11/24 15:30 Morphine Sulfate 2 mg Q4HPRN PRN IV 08/11/24 15:30 08/12/24 08:05 2 MG Insulin Human Regular HS SC 08/11/24 22:00 Insulin Human Regular AC SC 08/11/24 17:00 08/12/24 16:57 3 UNITS Dextrose 50 ml UD PRN IV 08/11/24 15:30 Acetaminophen/ Hydrocodone Bitart 1 tab Q4HP PRN PO 08/11/24 15:30 08/12/24 14:32 1 TAB Docusate Sodium 100 mg BIDPRN PRN PO 08/11/24 15:30 08/12/24 16:50 100 MG Acetaminophen 650 mg Q6HP PRN PO 08/11/24 15:30 Diagnostic Test (Pha) 1 strip ACHS 08/11/24 17:00 08/12/24 16:53 1 STRIP Vancomycin HCl 0 ml @ 0 mls/hr UD IV 08/11/24 16:00 Piperacillin Sod/ Tazobactam Sod 100 ml @ 25 mls/hr Q8HR IV 08/11/24 22:00 08/12/24 14:34 25 MLS/HR Vancomycin HCl 250 ml @ 250 mls/hr Q14H IV 08/12/24 03:00 08/12/24 03:17 250 MLS/HR Atorvastatin Calcium 20 mg HS PO 08/11/24 22:00 08/11/24 23:42 20 MG Losartan Potassium 25 mg DAILY PO 08/12/24 10:00 Polyethylene Glycol 17 gm DAILYPRN PRN PO 08/12/24 16:15 08/12/24 16:50 17 GM Docusate Sodium 100 mg BIDPRN PRN PO 08/12/24 16:15 Laboratory Results Laboratory Tests 08/12/24 05:05 Chemistry Test 08/12/24 05:05 Albumin 3.6 g/dL (3.2-4.8) Calcium Level 9.2 mg/dL (8.7-10.4) Total Protein 6.2 g/dL (5.7-8.2) LFT Test 08/12/24 05:05 Alanine Aminotransferase (ALT) 80 U/L (7-40) H Alkaline Phosphatase 156 U/L (46-116) H Aspartate Amino Transferase (AST) 69 U/L (13-40) H Total Bilirubin 0.9 mg/dL (0.2-1.0) Urinalysis Test 08/11/24 13:44 Urine Color Light-yellow (Yellow) Urine Clarity Clear (Clear) Urine pH 6.0 (5.0-9.0) Urine Specific [place] 1.050 (1.001-1.035) Urine Protein Trace (Negative) H Urine Ketones Negative (Negative) Urine Blood Negative /uL (Negative) Urine Nitrite Negative (Negative) Urine Bilirubin Negative (Negative) Urine Urobilinogen Normal mg/dL (Negative) Urine Leukocyte Esterase Negative /uL (Negative) Urine RBC 55 /hpf (0 - 3) Urine Microscopic WBC 23 /HPF (0-3) H Urine Squamous Epithelial Cells Few /hpf (<5) Urine Bacteria None seen /hpf (None Seen) Urine Glucose Normal mg/dL (Normal) Microbiology Microbiology Date/Time Source Procedure Growth Status 08/11/24 13:00 Blood Blood Culture - Preliminary NO GROWTH AFTER 24 HOURS OF INCUBATION. Resulted Assessment/Plan Assessment/Plan #Perirectal abscess, #sepsis due to perirectal abscess WBC still 22k continue IV abx Going for drainage today #Uncontrolled diabetes type 2 with hyperglycemia #Hypertension Continue sliding scale Plan discussed with: Patient My Orders Orders - ERICA AYON MD Procedure Category Date Status Time Polyethylene Glycol PHA 08/12/24 In Process 17g Powder (Miralax 16:15 Docusate Sodium PHA 08/12/24 In Process Capsule (Colace 16:15 Date of Service: Aug 12, 2024 Billing Provider: ERICA AYNO MD Common Visit Codes: [id number] INP/OBS CARE(HIGH) ERICA AYON MD Aug 12, 2024 17:46
[2024-08-12] MEDS: ONDANSETRON HCL 4 MG/2 ML VIAL IV PRN (20:31)
[2024-08-13] VITALS (9 sets, daily range): BP systolic 86–105; BP diastolic 54–61; PULSE 75–109; RESP 18–20; TEMP 98–102.6; O2SAT 91–98
[2024-08-13 06:40] LABS: Hematocrit 36.3 % (41.0-53.0); Hemoglobin 12.1 g/dL (13.5-17.5); Mean Corpuscular Hemoglobin 30.2 pg (28.0-32.0); Mean Corpuscular Hgb Conc. 33.3 g/dL (32.0-36.0); Mean Corpuscular Volume 90.7 fL (80.0-100.0); Platelet Count (auto) 293 10^3/uL (140-450); Red Cell Distribution Width 13.7 % (11.8-14.3); White Blood Cell 20.3 10^3/uL (4.4-10.8)
[2024-08-13 07:00] LABS: Basophils % (manual) 0 (0.0-2.0); Blast Cells 0; Eosinophils % (manual) 0 (0-7); Metamyelocytes % 0; Myelocytes % 0; Promyelocytes % 0; Reactive Lymphocytes 0
[2024-08-13 08:53] LABS: Band Neutrophils % (manual) 14; Lymphocytes % (manual) 11 (10.0-50.0); Monocytes % (manual) 6 (0-12); Platelet Estimate Adequate
[2024-08-13] MEDS ORDERED: VANCOMYCIN 1GM/250ML KIT 250 ML IV SCH (12:00)
--- NOTE | 2024-08-13 17:30 | DVHPN2 ---
Subjective in bed resting and feeling well Changes from previous H/P or p: No Changes Eyes: No Pain, No Vision change, No Conjunctivae inflammation, No Eyelid inflammation, No Other, No Redness ENT: No Ear pain, No Ear discharge, No Nose pain, No Nose discharge, No Nose congestion, No Mouth pain, No Mouth swelling, No Throat pain, No Throat swelling, No Other Cardiovascular: No Chest Pain, No Palpitations, No Orthopnea, No Paroxysmal Noc. Dyspnea, No Edema, No Lt Headedness, No Other Respiratory: No Cough, No Dry, No Shortness of breath, No SOB with excertion, No Wheezing, No Hemoptysis, No Pleuritic Pain, No Sputum, No Other Gastrointestinal: No Nausea, No Vomiting, No Abdominal Pain, No Diarrhea; C onstipation; No Melena, No Hematochezia, No Other Genitourinary: No Dysuria, No Frequency, No Incontinence, No Hematuria, No Retention, No Other Musculoskeletal: No other, No neck pain, No shoulder pain, No arm pain; back pain (low back/buttock pain); No hand pain, No leg pain, No foot pain Skin: No Rash, No Lesions, No Jaundice, No Bruising, No Other Objective Vitals Vital Signs Date Time Temp Pulse Resp B/P (MAP) Pulse Ox O2 Delivery O2 Flow Rate FiO2 08/13/24 13:00 98.6 96 18 98/58 (71) 95 98.6 08/13/24 08:00 Room Air* 0 21 Intake/Output Intake and Output 08/13/24 07:00 Intake Total 1650 ml Output Total 5500 ml Balance -3850 ml Intake Oral 1450 ml IV Total 200 ml Output Urine Total 5300 ml Drainage Total 200 ml General Appearance: Alert, Oriented X3 Lungs: Clear to auscultation Cardiovascular: Regular rate, Normal S1, Normal S2 Medications Current Medications Medications Dose Ordered Sig/Canelo Route Start Time Stop Time Status Last Admin Dose Admin Sodium Chloride 10 ml Q8HR IV 08/11/24 22:00 08/13/24 14:07 10 ML Ondansetron HCl 4 mg Q4HP PRN IV 08/11/24 15:30 08/12/24 20:31 4 MG Morphine Sulfate 2 mg Q4HPRN PRN IV 08/11/24 15:30 08/12/24 08:05 2 MG Insulin Human Regular HS SC 08/11/24 22:00 08/12/24 22:53 2 UNITS Insulin Human Regular AC SC 08/11/24 17:00 08/13/24 12:06 6 UNITS Dextrose 50 ml UD PRN IV 08/11/24 15:30 Acetaminophen/ Hydrocodone Bitart 1 tab Q4HP PRN PO 08/11/24 15:30 08/13/24 05:50 1 TAB Docusate Sodium 100 mg BIDPRN PRN PO 08/11/24 15:30 08/12/24 16:50 100 MG Acetaminophen 650 mg Q6HP PRN PO 08/11/24 15:30 Diagnostic Test (Pha) 1 strip ACHS 08/11/24 17:00 08/13/24 11:30 1 STRIP Vancomycin HCl 0 ml @ 0 mls/hr UD IV 08/11/24 16:00 Piperacillin Sod/ Tazobactam Sod 100 ml @ 25 mls/hr Q8HR IV 08/11/24 22:00 08/13/24 14:07 25 MLS/HR Atorvastatin Calcium 20 mg HS PO 08/11/24 22:00 08/12/24 22:51 20 MG Losartan Potassium 25 mg DAILY PO 08/12/24 10:00 Polyethylene Glycol 17 gm DAILYPRN PRN PO 08/12/24 16:15 08/13/24 05:49 17 GM Docusate Sodium 100 mg BIDPRN PRN PO 08/12/24 16:15 Vancomycin HCl 250 ml @ 250 mls/hr Q12H IV 08/13/24 18:00 Laboratory Results Laboratory Tests 08/12/24 05:05 08/13/24 06:14 Urinalysis Test 08/11/24 13:44 Urine Color Light-yellow (Yellow) Urine Clarity Clear (Clear) Urine pH 6.0 (5.0-9.0) Urine Specific [place] 1.050 (1.001-1.035) Urine Protein Trace (Negative) H Urine Ketones Negative (Negative) Urine Blood Negative /uL (Negative) Urine Nitrite Negative (Negative) Urine Bilirubin Negative (Negative) Urine Urobilinogen Normal mg/dL (Negative) Urine Leukocyte Esterase Negative /uL (Negative) Urine RBC 55 /hpf (0 - 3) Urine Microscopic WBC 23 /HPF (0-3) H Urine Squamous Epithelial Cells Few /hpf (<5) Urine Bacteria None seen /hpf (None Seen) Urine Glucose Normal mg/dL (Normal) Microbiology Microbiology Date/Time Source Procedure Growth Status 08/12/24 12:20 Aspirate Gram Stain - Final Resulted 08/12/24 12:20 Aspirate Body Fluid Culture - Preliminary Resulted 08/11/24 13:00 Blood Blood Culture - Preliminary NO GROWTH AFTER 48 HOURS OF INCUBATION. Resulted Assessment/Plan Assessment/Plan #Perirectal abscess, #sepsis due to perirectal abscess WBC 22k>20K continue IV abx s/p drainage by surgery 08/12. Local wound care #Uncontrolled diabetes type 2 with hyperglycemia #Hypertension Continue sliding scale Plan discussed with: Patient Date of Service: Aug 13, 2024 Billing Provider: ERICA AYON MD Common Visit Codes: [id number] INP/OBS CARE(HIGH) ERICA AYON MD Aug 13, 2024 17:30
[2024-08-13] MEDS: VANCOMYCIN 1GM/250ML KIT 250 ML IV SCH (18:07)
[2024-08-14] VITALS (7 sets, daily range): BP systolic 99–114; BP diastolic 59–70; PULSE 87–99; RESP 18–19; TEMP 98.2–102; O2SAT 90–96
[2024-08-14] MEDS ORDERED: CARB-118 PO (09:21)
[2024-08-14 12:25] LABS: Basophils # (auto) 0.1 10 ^3/uL (0-0.2); Basophils % (auto) 0.4 % (0.0-2.0); Eosinophils # (auto) 0.1 10 ^3/uL (0-0.8); Eosinophils % (auto) 0.5 % (0.0-7.0); Hematocrit 37.5 % (41.0-53.0); Hemoglobin 12.4 g/dL (13.5-17.5); Lymphocytes # (auto) 2.4 10 ^3/uL (0.4-5.4); Mean Corpuscular Hemoglobin 31.1 pg (28.0-32.0); Mean Corpuscular Volume 94.5 fL (80.0-100.0); Monocytes # (auto) 1.1 10 ^3/uL (0-1.3); Monocytes % (auto) 6.5 % (0.0-12.0); Neutrophils # (auto) 12.7 10 ^3/uL (1.6-8.6); Neutrophils % (auto) 77.6 % (37.0-80.0); Nucleated Red Blood Cells % 0.2 %; Platelet Count (auto) 291 10^3/uL (140-450); Red Blood Cells 3.97 10^6/uL (4.5-5.90); White Blood Cell 16.3 10^3/uL (4.4-10.8)
--- NOTE | 2024-08-14 17:05 | MEDREC ---
[facility] ASP Intervention Section I [facility] ASP Intervention: Deescalate AB based on CS (THE FINAL BODY FLUID CULTURE SHOWED E.COLI AND E.COLI #2. PLEASE CONSIDER DE-ESCALATING ANTIBIOTICS BASED ON CULTURE RESULT) BHANU NOLEN Aug 14, 2024 17:04
--- NOTE | 2024-08-14 17:33 | DVHPN2 ---
Subjective in bed resting and feeling well Changes from previous H/P or p: No Changes Eyes: No Pain, No Vision change, No Conjunctivae inflammation, No Eyelid inflammation, No Other, No Redness ENT: No Ear pain, No Ear discharge, No Nose pain, No Nose discharge, No Nose congestion, No Mouth pain, No Mouth swelling, No Throat pain, No Throat swelling, No Other Cardiovascular: No Chest Pain, No Palpitations, No Orthopnea, No Paroxysmal Noc. Dyspnea, No Edema, No Lt Headedness, No Other Respiratory: No Cough, No Dry, No Shortness of breath, No SOB with excertion, No Wheezing, No Hemoptysis, No Pleuritic Pain, No Sputum, No Other Gastrointestinal: No Nausea, No Vomiting, No Abdominal Pain, No Diarrhea; C onstipation; No Melena, No Hematochezia, No Other Genitourinary: No Dysuria, No Frequency, No Incontinence, No Hematuria, No Retention, No Other Musculoskeletal: No other, No neck pain, No shoulder pain, No arm pain; back pain (low back/buttock pain); No hand pain, No leg pain, No foot pain Skin: No Rash, No Lesions, No Jaundice, No Bruising, No Other Objective Vitals Vital Signs Date Time Temp Pulse Resp B/P (MAP) Pulse Ox O2 Delivery O2 Flow Rate FiO2 08/14/24 13:00 99.5 99 18 108/67 (81) 96 99.5 08/14/24 08:00 Room Air* 0 21 Intake/Output Intake and Output 08/14/24 07:00 Intake Total 1900 ml Output Total 4500 ml Balance -2600 ml Intake Oral 1100 ml IV Total 800 ml Output Urine Total 4300 ml Drainage Total 200 ml General Appearance: Alert, Oriented X3 Lungs: Clear to auscultation Cardiovascular: Regular rate, Normal S1, Normal S2 Medications Current Medications Medications Dose Ordered Sig/Canelo Route Start Time Stop Time Status Last Admin Dose Admin Sodium Chloride 10 ml Q8HR IV 08/11/24 22:00 08/14/24 12:37 10 ML Ondansetron HCl 4 mg Q4HP PRN IV 08/11/24 15:30 08/12/24 20:31 4 MG Morphine Sulfate 2 mg Q4HPRN PRN IV 08/11/24 15:30 08/12/24 08:05 2 MG Insulin Human Regular HS SC 3/4/25 22:00 08/13/24 21:33 2 UNITS Insulin Human Regular AC SC 08/11/24 17:00 08/14/24 17:14 6 UNITS Dextrose 50 ml UD PRN IV 08/11/24 15:30 Acetaminophen/ Hydrocodone Bitart 1 tab Q4HP PRN PO 08/11/24 15:30 08/14/24 16:20 1 TAB Acetaminophen 650 mg Q6HP PRN PO 08/11/24 15:30 Diagnostic Test (Pha) 1 strip ACHS 08/11/24 17:00 08/14/24 17:13 1 STRIP Vancomycin HCl 0 ml @ 0 mls/hr UD IV 08/11/24 16:00 Piperacillin Sod/ Tazobactam Sod 100 ml @ 25 mls/hr Q8HR IV 08/11/24 22:00 08/14/24 14:25 25 MLS/HR Atorvastatin Calcium 20 mg HS PO 08/11/24 22:00 08/13/24 21:24 20 MG Losartan Potassium 25 mg DAILY PO 08/12/24 10:00 Polyethylene Glycol 17 gm DAILYPRN PRN PO 08/12/24 16:15 08/14/24 16:20 17 GM Docusate Sodium 100 mg BIDPRN PRN PO 08/12/24 16:15 Vancomycin HCl 250 ml @ 250 mls/hr Q12H IV 08/13/24 18:00 08/14/24 05:20 250 MLS/HR Laboratory Results Laboratory Tests 08/12/24 05:05 08/14/24 06:25 Urinalysis Test 08/11/24 13:44 Urine Color Light-yellow (Yellow) Urine Clarity Clear (Clear) Urine pH 6.0 (5.0-9.0) Urine Specific [place] 1.050 (1.001-1.035) Urine Protein Trace (Negative) H Urine Ketones Negative (Negative) Urine Blood Negative /uL (Negative) Urine Nitrite Negative (Negative) Urine Bilirubin Negative (Negative) Urine Urobilinogen Normal mg/dL (Negative) Urine Leukocyte Esterase Negative /uL (Negative) Urine RBC 55 /hpf (0 - 3) Urine Microscopic WBC 23 /HPF (0-3) H Urine Squamous Epithelial Cells Few /hpf (<5) Urine Bacteria None seen /hpf (None Seen) Urine Glucose Normal mg/dL (Normal) Microbiology Microbiology Date/Time Source Procedure Growth Status 08/12/24 12:20 Aspirate Gram Stain - Final Resulted 08/12/24 12:20 Body Fluid Culture - Preliminary Escherichia coli Escherichia coli#2 Resulted 08/11/24 13:00 Blood Blood Culture - Preliminary NO GROWTH AFTER 72 HOURS OF INCUBATION. Resulted Assessment/Plan Assessment/Plan #Perirectal abscess, #sepsis due to perirectal abscess WBC 22k>20K continue IV abx s/p drainage by surgery 08/12. Local wound care #Uncontrolled diabetes type 2 with hyperglycemia #Hypertension Continue sliding scale Plan discussed with: Patient Date of Service: Aug 14, 2024 Billing Provider: ERICA AYON MD Common Visit Codes: [id number] INP/OBS CARE(HIGH) ERICA AYON MD Aug 14, 2024 17:33
[2024-08-14] MEDS: DOCUSATE SOD 100 MG CAP PO PRN (21:35)
[2024-08-15] VITALS (8 sets, daily range): BP systolic 88–132; BP diastolic 52–70; PULSE 59–103; RESP 16–20; TEMP 98.2–98.9; O2SAT 91–98
[2024-08-15 06:50] LABS: Basophils # (auto) 0 10 ^3/uL (0-0.2); Basophils % (auto) 0.2 % (0.0-2.0); Eosinophils # (auto) 0.1 10 ^3/uL (0-0.8); Eosinophils % (auto) 1.3 % (0.0-7.0); Lymphocytes # (auto) 1.9 10 ^3/uL (0.4-5.4); Lymphocytes % (auto) 16.9 % (10.0-50.0); Mean Corpuscular Hemoglobin 30.2 pg (28.0-32.0); Mean Corpuscular Hgb Conc. 33.5 g/dL (32.0-36.0); Mean Corpuscular Volume 90.2 fL (80.0-100.0); Monocytes # (auto) 0.9 10 ^3/uL (0-1.3); Monocytes % (auto) 8.3 % (0.0-12.0); Neutrophils % (auto) 73.3 % (37.0-80.0); Nucleated Red Blood Cells % 0.1 %; Platelet Count (auto) 341 10^3/uL (140-450); Red Blood Cells 4.32 10^6/uL (4.5-5.90); Red Cell Distribution Width 13.4 % (11.8-14.3)
[2024-08-15 07:01] LABS: Anion Gap 7 (5-15); Carbon Dioxide 27 mmol/L (20-31); Chloride 102 mmol/L (98-107)
[2024-08-15 07:06] LABS: BUN/Creatinine Ratio 7.8 (10.0-20.0)
[2024-08-15 07:11] LABS: Blood Urea Nitrogen 7 mg/dL (9-23); Calcium 8.4 mg/dL (8.7-10.4); Glucose 153 mg/dL (74-106); Potassium 3.4 mmol/L (3.5-5.1); Sodium 136 mmol/L (136-145)
--- NOTE | 2024-08-15 14:19 | DVHPN2 ---
Subjective in bed resting and feeling well Changes from previous H/P or p: No Changes Eyes: No Pain, No Vision change, No Conjunctivae inflammation, No Eyelid inflammation, No Other, No Redness ENT: No Ear pain, No Ear discharge, No Nose pain, No Nose discharge, No Nose congestion, No Mouth pain, No Mouth swelling, No Throat pain, No Throat swelling, No Other Cardiovascular: No Chest Pain, No Palpitations, No Orthopnea, No Paroxysmal Noc. Dyspnea, No Edema, No Lt Headedness, No Other Respiratory: No Cough, No Dry, No Shortness of breath, No SOB with excertion, No Wheezing, No Hemoptysis, No Pleuritic Pain, No Sputum, No Other Gastrointestinal: No Nausea, No Vomiting, No Abdominal Pain, No Diarrhea; C onstipation; No Melena, No Hematochezia, No Other Genitourinary: No Dysuria, No Frequency, No Incontinence, No Hematuria, No Retention, No Other Musculoskeletal: No other, No neck pain, No shoulder pain, No arm pain; back pain (low back/buttock pain); No hand pain, No leg pain, No foot pain Skin: No Rash, No Lesions, No Jaundice, No Bruising, No Other Objective Vitals Vital Signs Date Time Temp Pulse Resp B/P (MAP) Pulse Ox O2 Delivery O2 Flow Rate FiO2 08/15/24 10:49 107/65 08/15/24 09:13 98.9 84 18 95 98.9 08/15/24 08:15 Room Air* 0 21 Intake/Output Intake and Output 08/15/24 07:00 Intake Total 2424 ml Output Total 4175 ml Balance -1751 ml Intake Oral 2224 ml IV Total 200 ml Output Urine Total 4175 ml General Appearance: Alert, Oriented X3 Lungs: Clear to auscultation Cardiovascular: Regular rate, Normal S1, Normal S2 Medications Current Medications Medications Dose Ordered Sig/Canelo Route Start Time Stop Time Status Last Admin Dose Admin Sodium Chloride 10 ml Q8HR IV 08/11/24 22:00 08/15/24 06:10 10 ML Ondansetron HCl 4 mg Q4HP PRN IV 08/11/24 15:30 08/12/24 20:31 4 MG Morphine Sulfate 2 mg Q4HPRN PRN IV 08/11/24 15:30 08/12/24 08:05 2 MG Insulin Human Regular HS SC 08/11/24 22:00 08/14/24 21:43 2 UNITS Insulin Human Regular AC SC 08/11/24 17:00 08/15/24 12:42 3 UNITS Dextrose 50 ml UD PRN IV 08/11/24 15:30 Acetaminophen/ Hydrocodone Bitart 1 tab Q4HP PRN PO 08/11/24 15:30 08/14/24 16:20 1 TAB Acetaminophen 650 mg Q6HP PRN PO 08/11/24 15:30 Diagnostic Test (Pha) 1 strip ACHS 08/11/24 17:00 08/15/24 12:40 1 STRIP Vancomycin HCl 0 ml @ 0 mls/hr UD IV 08/11/24 16:00 Piperacillin Sod/ Tazobactam Sod 100 ml @ 25 mls/hr Q8HR IV 08/11/24 22:00 08/15/24 05:08 25 MLS/HR Atorvastatin Calcium 20 mg HS PO 08/11/24 22:00 08/14/24 21:35 20 MG Losartan Potassium 25 mg DAILY PO 08/12/24 10:00 08/15/24 10:49 25 MG Polyethylene Glycol 17 gm DAILYPRN PRN PO 08/12/24 16:15 08/14/24 16:20 17 GM Docusate Sodium 100 mg BIDPRN PRN PO 08/12/24 16:15 08/15/24 12:42 100 MG Vancomycin HCl 250 ml @ 250 mls/hr Q12H IV 08/13/24 18:00 08/15/24 07:32 250 MLS/HR Laboratory Results Laboratory Tests 08/15/24 06:12 Chemistry Test 08/15/24 06:12 Calcium Level 8.4 mg/dL (8.7-10.4) L Urinalysis Test 08/11/24 13:44 Urine Color Light-yellow (Yellow) Urine Clarity Clear (Clear) Urine pH 6.0 (5.0-9.0) Urine Specific [place] 1.050 (1.001-1.035) Urine Protein Trace (Negative) H Urine Ketones Negative (Negative) Urine Blood Negative /uL (Negative) Urine Nitrite Negative (Negative) Urine Bilirubin Negative (Negative) Urine Urobilinogen Normal mg/dL (Negative) Urine Leukocyte Esterase Negative /uL (Negative) Urine RBC 55 /hpf (0 - 3) Urine Microscopic WBC 23 /HPF (0-3) H Urine Squamous Epithelial Cells Few /hpf (<5) Urine Bacteria None seen /hpf (None Seen) Urine Glucose Normal mg/dL (Normal) Microbiology Microbiology Date/Time Source Procedure Growth Status 08/12/24 12:20 Aspirate Gram Stain - Final Resulted 08/12/24 12:20 Body Fluid Culture - Preliminary Escherichia coli Escherichia coli#2 Resulted 08/11/24 13:00 Blood Blood Culture - Preliminary NO GROWTH AFTER 72 HOURS OF INCUBATION. Resulted Assessment/Plan Assessment/Plan #Perirectal abscess, #sepsis due to perirectal abscess WBC 22k>20K>11 continue IV abx s/p drainage by surgery 08/12. Local wound care #Uncontrolled diabetes type 2 with hyperglycemia #Hypertension Continue sliding scale Plan discussed with: Patient My Orders Orders - ERICA AYON MD Procedure Category Date Status Time Complete Blood Count LAB 08/16/24 Verified 05:00 Complete Blood Count LAB 08/17/24 Verified 05:00 Complete Blood Count LAB 08/18/24 Verified 05:00 Complete Blood Count LAB 08/19/24 Verified 05:00 Complete Blood Count LAB 08/20/24 Verified 05:00 Complete Blood Count LAB 08/21/24 Verified 05:00 Basic Metabolic Panel LAB 08/16/24 Verified 05:00 Basic Metabolic Panel LAB 08/17/24 Verified 05:00 Basic Metabolic Panel LAB 08/18/24 Verified 05:00 Basic Metabolic Panel LAB 08/19/24 Verified 05:00 Basic Metabolic Panel LAB 08/20/24 Verified 05:00 Basic Metabolic Panel LAB 08/21/24 Verified 05:00 Date of Service: Aug 15, 2024 Billing Provider: ERICA AYON MD Common Visit Codes: [id number] INP/OBS CARE(HIGH) ERICA AYON MD Aug 15, 2024 14:19
[2024-08-16] VITALS (8 sets, daily range): BP systolic 82–116; BP diastolic 55–72; PULSE 84–131; RESP 18–97; TEMP 97.2–99.1; O2SAT 95–98
[2024-08-16 06:20] LABS: Hemoglobin 12.4 g/dL (13.5-17.5); Mean Corpuscular Hemoglobin 31.2 pg (28.0-32.0); Mean Corpuscular Hgb Conc. 34.4 g/dL (32.0-36.0); Mean Corpuscular Volume 90.5 fL (80.0-100.0); Platelet Count (auto) 344 10^3/uL (140-450); Red Blood Cells 3.98 10^6/uL (4.5-5.90); Red Cell Distribution Width 13.2 % (11.8-14.3); White Blood Cell 10.7 10^3/uL (4.4-10.8)
[2024-08-16 06:31] LABS: Band Neutrophils % (manual) 0; Basophils % (manual) 0 (0.0-2.0); Blast Cells 0; Metamyelocytes % 0; Myelocytes % 0; Promyelocytes % 0; Reactive Lymphocytes 0
[2024-08-16 06:32] LABS: Chloride 99 mmol/L (98-107); Potassium 3.9 mmol/L (3.5-5.1)
[2024-08-16 06:33] LABS: Anion Gap 10 (5-15); Carbon Dioxide 27 mmol/L (20-31)
[2024-08-16 06:34] LABS: Calcium 8.7 mg/dL (8.7-10.4)
[2024-08-16 06:39] LABS: BUN/Creatinine Ratio 7.7 (10.0-20.0)
[2024-08-16 06:46] LABS: Eosinophils % (manual) 4 (0-7); Lymphocytes % (manual) 27 (10.0-50.0); Monocytes % (manual) 5 (0-12); Platelet Estimate Adequate
[2024-08-16 06:48] LABS: Blood Urea Nitrogen 8 mg/dL (9-23); Glucose 180 mg/dL (74-106); Sodium 136 mmol/L (136-145)
--- NOTE | 2024-08-16 19:43 | DVHPN2 ---
Subjective in bed resting and feeling well Changes from previous H/P or p: No Changes Eyes: No Pain, No Vision change, No Conjunctivae inflammation, No Eyelid inflammation, No Other, No Redness ENT: No Ear pain, No Ear discharge, No Nose pain, No Nose discharge, No Nose congestion, No Mouth pain, No Mouth swelling, No Throat pain, No Throat swelling, No Other Cardiovascular: No Chest Pain, No Palpitations, No Orthopnea, No Paroxysmal Noc. Dyspnea, No Edema, No Lt Headedness, No Other Respiratory: No Cough, No Dry, No Shortness of breath, No SOB with excertion, No Wheezing, No Hemoptysis, No Pleuritic Pain, No Sputum, No Other Gastrointestinal: No Nausea, No Vomiting, No Abdominal Pain, No Diarrhea; C onstipation; No Melena, No Hematochezia, No Other Genitourinary: No Dysuria, No Frequency, No Incontinence, No Hematuria, No Retention, No Other Musculoskeletal: No other, No neck pain, No shoulder pain, No arm pain; back pain (low back/buttock pain); No hand pain, No leg pain, No foot pain Skin: No Rash, No Lesions, No Jaundice, No Bruising, No Other Objective Vitals Vital Signs Date Time Temp Pulse Resp B/P (MAP) Pulse Ox O2 Delivery O2 Flow Rate FiO2 08/16/24 17:00 99.1 103 20 108/63 (78) 98 99.1 08/16/24 08:20 Room Air* 0 21 Intake/Output Intake and Output 08/16/24 07:00 Intake Total 3075 ml Output Total 4875 ml Balance -1800 ml Intake Oral 2375 ml IV Total 700 ml Output Urine Total 4875 ml # Bowel Movements 1 General Appearance: Alert, Oriented X3 Lungs: Clear to auscultation Cardiovascular: Regular rate, Normal S1, Normal S2 Medications Current Medications Medications Dose Ordered Sig/Canelo Route Start Time Stop Time Status Last Admin Dose Admin Sodium Chloride 10 ml Q8HR IV 08/11/24 22:00 08/16/24 14:44 10 ML Ondansetron HCl 4 mg Q4HP PRN IV 08/11/24 15:30 08/12/24 20:31 4 MG Morphine Sulfate 2 mg Q4HPRN PRN IV 08/11/24 15:30 08/12/24 08:05 2 MG Insulin Human Regular HS SC 3/4/25 22:00 08/15/24 23:06 3 UNITS Insulin Human Regular AC SC 08/11/24 17:00 08/16/24 16:56 2 UNITS Dextrose 50 ml UD PRN IV 08/11/24 15:30 Acetaminophen/ Hydrocodone Bitart 1 tab Q4HP PRN PO 08/11/24 15:30 08/14/24 16:20 1 TAB Acetaminophen 650 mg Q6HP PRN PO 08/11/24 15:30 Diagnostic Test (Pha) 1 strip ACHS 08/11/24 17:00 08/16/24 16:54 1 STRIP Vancomycin HCl 0 ml @ 0 mls/hr UD IV 08/11/24 16:00 Piperacillin Sod/ Tazobactam Sod 100 ml @ 25 mls/hr Q8HR IV 08/11/24 22:00 08/16/24 14:43 25 MLS/HR Atorvastatin Calcium 20 mg HS PO 08/11/24 22:00 08/15/24 22:38 20 MG Losartan Potassium 25 mg DAILY PO 08/12/24 10:00 08/15/24 10:49 25 MG Polyethylene Glycol 17 gm DAILYPRN PRN PO 08/12/24 16:15 08/14/24 16:20 17 GM Docusate Sodium 100 mg BIDPRN PRN PO 08/12/24 16:15 08/15/24 12:42 100 MG Vancomycin HCl 250 ml @ 250 mls/hr Q12H IV 08/13/24 18:00 08/16/24 18:50 250 MLS/HR Laboratory Results Laboratory Tests 08/16/24 06:05 Chemistry Test 08/16/24 06:05 Calcium Level 8.7 mg/dL (8.7-10.4) Urinalysis Test 08/11/24 13:44 Urine Color Light-yellow (Yellow) Urine Clarity Clear (Clear) Urine pH 6.0 (5.0-9.0) Urine Specific [place] 1.050 (1.001-1.035) Urine Protein Trace (Negative) H Urine Ketones Negative (Negative) Urine Blood Negative /uL (Negative) Urine Nitrite Negative (Negative) Urine Bilirubin Negative (Negative) Urine Urobilinogen Normal mg/dL (Negative) Urine Leukocyte Esterase Negative /uL (Negative) Urine RBC 55 /hpf (0 - 3) Urine Microscopic WBC 23 /HPF (0-3) H Urine Squamous Epithelial Cells Few /hpf (<5) Urine Bacteria None seen /hpf (None Seen) Urine Glucose Normal mg/dL (Normal) Microbiology Microbiology Date/Time Source Procedure Growth Status 08/12/24 12:20 Aspirate Gram Stain - Final Complete 08/12/24 12:20 Body Fluid Culture - Final Escherichia coli Escherichia coli#2 Complete 08/11/24 13:00 Blood Blood Culture - Final NO GROWTH AFTER 5 DAYS OF INCUBATION. Complete Assessment/Plan Assessment/Plan #Perirectal abscess, #sepsis due to perirectal abscess WBC 22k>20K>11 continue IV abx s/p drainage by surgery 08/12. Local wound care #Uncontrolled diabetes type 2 with hyperglycemia #Hypertension Continue sliding scale Plan discussed with: Patient Date of Service: Aug 16, 2024 Billing Provider: ERICA AOYN MD Common Visit Codes: [id number] INP/OBS CARE(HIGH) ERICA AYON MD Aug 16, 2024 19:43
[2024-08-17] VITALS (7 sets, daily range): BP systolic 95–126; BP diastolic 56–77; PULSE 64–112; RESP 17–20; TEMP 97.2–101.8; O2SAT 96–100
[2024-08-17 06:53] LABS: Chloride 103 mmol/L (98-107); Sodium 136 mmol/L (136-145)
[2024-08-17 06:54] LABS: Anion Gap 10 (5-15); Carbon Dioxide 23 mmol/L (20-31)
[2024-08-17 06:58] LABS: Basophils # (auto) 0 10 ^3/uL (0-0.2); Basophils % (auto) 0.2 % (0.0-2.0); Eosinophils # (auto) 0.2 10 ^3/uL (0-0.8); Eosinophils % (auto) 1.6 % (0.0-7.0); Hematocrit 37.4 % (41.0-53.0); Lymphocytes # (auto) 1.8 10 ^3/uL (0.4-5.4); Lymphocytes % (auto) 16.9 % (10.0-50.0); Mean Corpuscular Hemoglobin 31.2 pg (28.0-32.0); Mean Corpuscular Hgb Conc. 34.7 g/dL (32.0-36.0); Monocytes # (auto) 0.9 10 ^3/uL (0-1.3); Monocytes % (auto) 8.4 % (0.0-12.0); Neutrophils # (auto) 7.9 10 ^3/uL (1.6-8.6); Neutrophils % (auto) 72.9 % (37.0-80.0); Platelet Count (auto) 358 10^3/uL (140-450); Red Blood Cells 4.16 10^6/uL (4.5-5.90); Red Cell Distribution Width 13.2 % (11.8-14.3); White Blood Cell 10.8 10^3/uL (4.4-10.8)
[2024-08-17 06:59] LABS: BUN/Creatinine Ratio 6.7 (10.0-20.0)
[2024-08-17 07:00] LABS: Blood Urea Nitrogen 7 mg/dL (9-23); Calcium 8.7 mg/dL (8.7-10.4); Glucose 142 mg/dL (74-106); Potassium 3.3 mmol/L (3.5-5.1)
--- NOTE | 2024-08-17 11:54 | DVHPN2 ---
Subjective The patient is seen and examined at bedside. The patient complained of itching all over his chest. He said he very sensitive to Linen of the bed and he had asked them to change the bedding but they have not changed for two day that is why he had this rash. The patient also had low-grade fever of 99.5. The patient is really wanted to go home. Reviewed: Care Plan, H&P, Labs, Medications, Previous Orders, Radiology Changes from previous H/P or p: No Changes Eyes: No Pain, No Vision change, No Conjunctivae inflammation, No Eyelid inflammation, No Other, No Redness ENT: No Ear pain, No Ear discharge, No Nose pain, No Nose discharge, No Nose congestion, No Mouth pain, No Mouth swelling, No Throat pain, No Throat swelling, No Other Cardiovascular: No Chest Pain, No Palpitations, No Orthopnea, No Paroxysmal Noc. Dyspnea, No Edema, No Lt Headedness, No Other Respiratory: No Cough, No Dry, No Shortness of breath, No SOB with excertion, No Wheezing, No Hemoptysis, No Pleuritic Pain, No Sputum, No Other Gastrointestinal: No Nausea, No Vomiting, No Abdominal Pain, No Diarrhea; C onstipation; No Melena, No Hematochezia, No Other Genitourinary: No Dysuria, No Frequency, No Incontinence, No Hematuria, No Retention, No Other Musculoskeletal: No other, No neck pain, No shoulder pain, No arm pain; back pain (low back/buttock pain); No hand pain, No leg pain, No foot pain Skin: No Rash, No Lesions, No Jaundice, No Bruising, No Other Objective Vitals Vital Signs Date Time Temp Pulse Resp B/P (MAP) Pulse Ox O2 Delivery O2 Flow Rate FiO2 08/17/24 09:00 99.5 109 17 95/56 (69) 99 99.5 08/16/24 20:00 Room Air* 0 21 Intake/Output Intake and Output 08/17/24 07:00 Intake Total 2200 ml Output Total 4396 ml Balance -2196 ml Intake Oral 1850 ml IV Total 350 ml Output Urine Total 4300 ml Stool Total 1 ml Drainage Total 95 ml # Bowel Movements 2 General Appearance: Alert, Oriented X3 Lungs: Clear to auscultation Cardiovascular: Regular rate, Normal S1, Normal S2 Medications Current Medications Medications Dose Ordered Sig/Canelo Route Start Time Stop Time Status Last Admin Dose Admin Sodium Chloride 10 ml Q8HR IV 08/11/24 22:00 08/17/24 05:27 10 ML Ondansetron HCl 4 mg Q4HP PRN IV 08/11/24 15:30 08/12/24 20:31 4 MG Morphine Sulfate 2 mg Q4HPRN PRN IV 08/11/24 15:30 08/12/24 08:05 2 MG Insulin Human Regular HS SC 08/11/24 22:00 08/16/24 23:05 2 UNITS Insulin Human Regular AC SC 08/11/24 17:00 08/17/24 06:33 2 UNITS Dextrose 50 ml UD PRN IV 08/11/24 15:30 Acetaminophen/ Hydrocodone Bitart 1 tab Q4HP PRN PO 08/11/24 15:30 08/14/24 16:20 1 TAB Acetaminophen 650 mg Q6HP PRN PO 08/11/24 15:30 Diagnostic Test (Pha) 1 strip ACHS 08/11/24 17:00 08/17/24 06:32 1 STRIP Vancomycin HCl 0 ml @ 0 mls/hr UD IV 08/11/24 16:00 Piperacillin Sod/ Tazobactam Sod 100 ml @ 25 mls/hr Q8HR IV 08/11/24 22:00 08/17/24 05:28 25 MLS/HR Atorvastatin Calcium 20 mg HS PO 08/11/24 22:00 08/16/24 21:02 20 MG Losartan Potassium 25 mg DAILY PO 08/12/24 10:00 08/15/24 10:49 25 MG Polyethylene Glycol 17 gm DAILYPRN PRN PO 08/12/24 16:15 08/14/24 16:20 17 GM Docusate Sodium 100 mg BIDPRN PRN PO 08/12/24 16:15 08/17/24 06:39 100 MG Vancomycin HCl 250 ml @ 250 mls/hr Q12H IV 08/13/24 18:00 08/17/24 05:27 250 MLS/HR Laboratory Results Laboratory Tests 08/17/24 06:23 Chemistry Test 08/17/24 06:23 Calcium Level 8.7 mg/dL (8.7-10.4) Urinalysis Test 08/11/24 13:44 Urine Color Light-yellow (Yellow) Urine Clarity Clear (Clear) Urine pH 6.0 (5.0-9.0) Urine Specific [place] 1.050 (1.001-1.035) Urine Protein Trace (Negative) H Urine Ketones Negative (Negative) Urine Blood Negative /uL (Negative) Urine Nitrite Negative (Negative) Urine Bilirubin Negative (Negative) Urine Urobilinogen Normal mg/dL (Negative) Urine Leukocyte Esterase Negative /uL (Negative) Urine RBC 55 /hpf (0 - 3) Urine Microscopic WBC 23 /HPF (0-3) H Urine Squamous Epithelial Cells Few /hpf (<5) Urine Bacteria None seen /hpf (None Seen) Urine Glucose Normal mg/dL (Normal) Microbiology Microbiology Date/Time Source Procedure Growth Status 08/12/24 12:20 Aspirate Gram Stain - Final Complete 08/12/24 12:20 Body Fluid Culture - Final Escherichia coli Escherichia coli#2 Complete 08/11/24 13:00 Blood Blood Culture - Final NO GROWTH AFTER 5 DAYS OF INCUBATION. Complete Labs and/or images reviewed: Labs reviewed by me Assessment/Plan Assessment/Plan #Perirectal abscess, #sepsis due to perirectal abscess WBC 22k>20K>11 continue IV abx s/p drainage by surgery 08/12. Local wound care #Uncontrolled diabetes type 2 with hyperglycemia #Hypertension # low-grade fever # rash on chest Plan: Continuing current management. I will change his linen of the bed. I am going to give him triamcinolone cream to apply to the chest p.r.n. for itching and Benadryl 25 mg IV q.6 hours p.r.n. for itching. Tylenol p.r.n. for temperature greater than 100.5. Continuing IV antibiotic. Discussed in length with the patient and daughter that the patient is not ready to go home until he do not have any fever and until the rash improved. I also will give him antihistamine Claritin This medical document was created using an electronic medical record system with [employer] direct computerized dictation system. Although this document has been carefully reviewed, there may still be some phonetic and typographical errors. These areas are purely typographical due to imperfections of the software programs, and do not reflect any compromise in the patient's medical care. Plan discussed with: Patient, Daughter My Orders Orders - NARCISO LEE MD Procedure Category Date Status Time Triamcinolone 0.1 PHA 08/17/24 Transmitted Topical Cr (Kenalog 0. 22:00 Diphenhdramine PHA 08/17/24 Transmitted Injection (Benadryl 12:00 Date of Service: Aug 17, 2024 Billing Provider: NARCISO LEE MD Common Visit Codes: [id number] INP/OBS CARE(HIGH) NARCISO LEE MD Aug 17, 2024 11:54
[2024-08-17] MEDS: ACETAMINOPHEN 325 MG TAB PO PRN (14:32)
[2024-08-17] MEDS: diphenhdrAMINE HCL 50 MG/1 ML VL IV PRN (14:37)
[2024-08-17] MEDS: TRIAMCINOLONE ACET 0.1% TOPICAL CREAM 15GM TOP SCH (21:06)
[2024-08-17] MEDS: InsuLIN REG 1unit/0.01ml Soln (100units/ml) SC SCH (23:41)
[2024-08-18] VITALS (7 sets, daily range): BP systolic 103–130; BP diastolic 59–74; PULSE 109–125; RESP 18–20; TEMP 98.5–102.9; O2SAT 93–98
[2024-08-18 06:51] LABS: Chloride 101 mmol/L (98-107)
[2024-08-18 06:52] LABS: Anion Gap 12 (5-15); Carbon Dioxide 22 mmol/L (20-31)
[2024-08-18 06:53] LABS: Calcium 8.8 mg/dL (8.7-10.4)
[2024-08-18 06:58] LABS: BUN/Creatinine Ratio 5.1 (10.0-20.0)
[2024-08-18 07:00] LABS: Hematocrit 39.5 % (41.0-53.0); Hemoglobin 13.3 g/dL (13.5-17.5); Mean Corpuscular Hgb Conc. 33.8 g/dL (32.0-36.0); Mean Corpuscular Volume 91.7 fL (80.0-100.0); Platelet Count (auto) 356 10^3/uL (140-450); Red Cell Distribution Width 13.5 % (11.8-14.3); White Blood Cell 12.7 10^3/uL (4.4-10.8)
[2024-08-18 07:09] LABS: Blood Urea Nitrogen 7 mg/dL (9-23); Glucose 147 mg/dL (74-106); Potassium 3.4 mmol/L (3.5-5.1); Sodium 135 mmol/L (136-145)
[2024-08-18 07:25] LABS: Basophils % (manual) 0 (0.0-2.0); Blast Cells 0; Eosinophils % (manual) 0 (0-7); Metamyelocytes % 0; Myelocytes % 0; Promyelocytes % 0; Reactive Lymphocytes 0
[2024-08-18 08:26] LABS: Band Neutrophils % (manual) 5; Lymphocytes % (manual) 25 (10.0-50.0); Monocytes % (manual) 10 (0-12); Platelet Estimate Adequate
--- NOTE | 2024-08-18 11:49 | DVHPN2 ---
Subjective The patient is seen and examined at bedside. The patient complained of itching all over his chest. He said he very sensitive to Linen of the bed and he had asked them to change the bedding but they have not changed for two day that is why he had this rash. The patient also had fever 101.9. The patient is really wanted to go home. Reviewed: Care Plan, H&P, Labs, Medications, Previous Orders, Radiology Changes from previous H/P or p: No Changes Eyes: No Pain, No Vision change, No Conjunctivae inflammation, No Eyelid inflammation, No Other, No Redness ENT: No Ear pain, No Ear discharge, No Nose pain, No Nose discharge, No Nose congestion, No Mouth pain, No Mouth swelling, No Throat pain, No Throat swelling, No Other Cardiovascular: No Chest Pain, No Palpitations, No Orthopnea, No Paroxysmal Noc. Dyspnea, No Edema, No Lt Headedness, No Other Respiratory: No Cough, No Dry, No Shortness of breath, No SOB with excertion, No Wheezing, No Hemoptysis, No Pleuritic Pain, No Sputum, No Other Gastrointestinal: No Nausea, No Vomiting, No Abdominal Pain, No Diarrhea; C onstipation; No Melena, No Hematochezia, No Other Genitourinary: No Dysuria, No Frequency, No Incontinence, No Hematuria, No Retention, No Other Musculoskeletal: No other, No neck pain, No shoulder pain, No arm pain; back pain (low back/buttock pain); No hand pain, No leg pain, No foot pain Skin: No Rash, No Lesions, No Jaundice, No Bruising, No Other Objective Vitals Vital Signs Date Time Temp Pulse Resp B/P (MAP) Pulse Ox O2 Delivery O2 Flow Rate FiO2 08/18/24 10:00 103/59 08/18/24 09:53 99.3 116 18 94 99.3 08/17/24 20:00 Room Air* 0 21 Intake/Output Intake and Output 08/18/24 06:59 Intake Total 2400 ml Output Total 30 ml Balance 2370 ml Intake Oral 2300 ml IV Total 100 ml Drainage Total 30 ml # Voids 6 # Bowel Movements 1 General Appearance: Alert, Oriented X3 Lungs: Clear to auscultation Cardiovascular: Regular rate, Normal S1, Normal S2 Skin: Other (drug induce urtica) Medications Current Medications Medications Dose Ordered Sig/Canelo Route Start Time Stop Time Status Last Admin Dose Admin Sodium Chloride 10 ml Q8HR IV 08/11/24 22:00 08/18/24 05:35 10 ML Ondansetron HCl 4 mg Q4HP PRN IV 08/11/24 15:30 08/17/24 19:21 4 MG Morphine Sulfate 2 mg Q4HPRN PRN IV 08/11/24 15:30 08/12/24 08:05 2 MG Insulin Human Regular AC SC 08/11/24 17:00 08/18/24 06:44 3 UNITS Dextrose 50 ml UD PRN IV 08/11/24 15:30 Acetaminophen/ Hydrocodone Bitart 1 tab Q4HP PRN PO 08/11/24 15:30 08/14/24 16:20 1 TAB Acetaminophen 650 mg Q6HP PRN PO 08/11/24 15:30 08/18/24 05:32 650 MG Diagnostic Test (Pha) 1 strip ACHS 08/11/24 17:00 08/18/24 11:00 1 STRIP Vancomycin HCl 0 ml @ 0 mls/hr UD IV 08/11/24 16:00 Atorvastatin Calcium 20 mg HS PO 08/11/24 22:00 08/17/24 21:05 20 MG Losartan Potassium 25 mg DAILY PO 08/12/24 10:00 08/15/24 10:49 25 MG Polyethylene Glycol 17 gm DAILYPRN PRN PO 08/12/24 16:15 08/14/24 16:20 17 GM Docusate Sodium 100 mg BIDPRN PRN PO 08/12/24 16:15 08/17/24 21:06 100 MG Vancomycin HCl 250 ml @ 250 mls/hr Q12H IV 08/13/24 18:00 08/18/24 05:34 250 MLS/HR Triamcinolone Acetonide 1 applic BID TOP 08/17/24 22:00 08/18/24 11:00 1 APPLIC Diphenhydramine HCl 25 mg Q6HP PRN IV 08/17/24 12:00 08/17/24 21:31 25 MG Insulin Human Regular HS SC 08/17/24 23:30 08/17/24 23:41 2 UNITS Loratadine 10 mg DAILY PO 08/18/24 12:00 UNV Metronidazole 100 ml @ 100 mls/hr Q8HR IV 08/18/24 22:00 UNV Laboratory Results Laboratory Tests 08/18/24 06:13 Chemistry Test 08/18/24 06:13 Calcium Level 8.8 mg/dL (8.7-10.4) Urinalysis Test 08/11/24 13:44 Urine Color Light-yellow (Yellow) Urine Clarity Clear (Clear) Urine pH 6.0 (5.0-9.0) Urine Specific [place] 1.050 (1.001-1.035) Urine Protein Trace (Negative) H Urine Ketones Negative (Negative) Urine Blood Negative /uL (Negative) Urine Nitrite Negative (Negative) Urine Bilirubin Negative (Negative) Urine Urobilinogen Normal mg/dL (Negative) Urine Leukocyte Esterase Negative /uL (Negative) Urine RBC 55 /hpf (0 - 3) Urine Microscopic WBC 23 /HPF (0-3) H Urine Squamous Epithelial Cells Few /hpf (<5) Urine Bacteria None seen /hpf (None Seen) Urine Glucose Normal mg/dL (Normal) Microbiology Microbiology Date/Time Source Procedure Growth Status 08/12/24 12:20 Aspirate Gram Stain - Final Complete 08/12/24 12:20 Body Fluid Culture - Final Escherichia coli Escherichia coli#2 Complete 08/11/24 13:00 Blood Blood Culture - Final NO GROWTH AFTER 5 DAYS OF INCUBATION. Complete Labs and/or images reviewed: Labs reviewed by me Assessment/Plan Assessment/Plan #Perirectal abscess, #sepsis due to perirectal abscess WBC 22k>20K>11 continue IV abx s/p drainage by surgery 08/12. Local wound care #Uncontrolled diabetes type 2 with hyperglycemia #Hypertension # low-grade fever # rash on chest Plan: Continuing current management. Linen of the bed has been change. Continue triamcinolone cream to apply to the chest p.r.n. for itching and Benadryl 25 mg IV q.6 hours p.r.n. for itching. Tylenol p.r.n. for temperature greater than 100.5. Continuing IV antibiotic. Discussed in length with the patient and grandson that the patient is not ready to go home until he do not have any fever and until the rash improved. Continue antihistamine Claritin. Repeat blood culture and urine culture. This medical document was created using an electronic medical record system with [employer] direct computerized dictation system. Although this document has been carefully reviewed, there may still be some phonetic and typographical errors. These areas are purely typographical due to imperfections of the software programs, and do not reflect any compromise in the patient's medical care. Plan discussed with: Patient, Other (grandson) My Orders Orders - NARCISO LEE MD Procedure Category Date Status Time Triamcinolone 0.1 PHA 08/17/24 In Process Topical Cr (Kenalog 0. 22:00 Diphenhdramine PHA 08/17/24 In Process Injection (Benadryl 12:00 Loratadine Tablet PHA 08/18/24 Logged (Claritin Tablet) 12:00 Metronidazole PHA 08/18/24 Logged 500mg/100ml (Flagyl 22:00 Metronidazole PHA 08/18/24 Logged 500mg/100ml (Flagyl 11:30 Date of Service: Aug 18, 2024 Billing Provider: NARCISO LEE MD Common Visit Codes: [id number] INP/OBS CARE(HIGH) NARCISO LEE MD Aug 18, 2024 11:49
[2024-08-18] MEDS: LORATADINE 10 MG TAB PO SCH (13:11)
[2024-08-18] MEDS: metroNIDAZOLE 500MG/100ML 100 ML IV ONE (13:11)
[2024-08-18] MEDS: metroNIDAZOLE 500MG/100ML 100 ML IV SCH (21:33)
[2024-08-19] VITALS (7 sets, daily range): BP systolic 99–122; BP diastolic 51–78; PULSE 60–121; RESP 18–20; TEMP 98.1–102.3; O2SAT 94–98
[2024-08-19 06:31] LABS: Basophils # (auto) 0 10 ^3/uL (0-0.2); Basophils % (auto) 0.1 % (0.0-2.0); Eosinophils # (auto) 0.2 10 ^3/uL (0-0.8); Eosinophils % (auto) 2.3 % (0.0-7.0); Hemoglobin 12.3 g/dL (13.5-17.5); Lymphocytes # (auto) 2.1 10 ^3/uL (0.4-5.4); Lymphocytes % (auto) 21.7 % (10.0-50.0); Mean Corpuscular Hemoglobin 30.8 pg (28.0-32.0); Mean Corpuscular Hgb Conc. 34.2 g/dL (32.0-36.0); Monocytes # (auto) 0.9 10 ^3/uL (0-1.3); Monocytes % (auto) 9.9 % (0.0-12.0); Neutrophils # (auto) 6.4 10 ^3/uL (1.6-8.6); Nucleated Red Blood Cells % 0.2 %; Platelet Count (auto) 325 10^3/uL (140-450); Red Cell Distribution Width 13.3 % (11.8-14.3); White Blood Cell 9.6 10^3/uL (4.4-10.8)
[2024-08-19 06:45] LABS: Anion Gap 12 (5-15); Carbon Dioxide 22 mmol/L (20-31); Chloride 99 mmol/L (98-107)
[2024-08-19 06:50] LABS: Calcium 8.1 mg/dL (8.7-10.4); Potassium 3.2 mmol/L (3.5-5.1); Sodium 133 mmol/L (136-145)
[2024-08-19 06:51] LABS: BUN/Creatinine Ratio 6.4 (10.0-20.0); Blood Urea Nitrogen 13 mg/dL (9-23)
[2024-08-19 06:53] LABS: Glucose 133 mg/dL (74-106)
--- NOTE | 2024-08-19 11:26 | DVHPN2 ---
Subjective The patient is seen and examined at bedside. The patient still had rash but improved. The patient fell last night. He did not hit his head or anything however his percutaneous drainage of the abscess fell off. Reviewed: Care Plan, H&P, Labs, Medications, Previous Orders, Radiology Changes from previous H/P or p: No Changes Eyes: No Pain, No Vision change, No Conjunctivae inflammation, No Eyelid inflammation, No Other, No Redness ENT: No Ear pain, No Ear discharge, No Nose pain, No Nose discharge, No Nose congestion, No Mouth pain, No Mouth swelling, No Throat pain, No Throat swelling, No Other Cardiovascular: No Chest Pain, No Palpitations, No Orthopnea, No Paroxysmal Noc. Dyspnea, No Edema, No Lt Headedness, No Other Respiratory: No Cough, No Dry, No Shortness of breath, No SOB with excertion, No Wheezing, No Hemoptysis, No Pleuritic Pain, No Sputum, No Other Gastrointestinal: No Nausea, No Vomiting, No Abdominal Pain, No Diarrhea; C onstipation; No Melena, No Hematochezia, No Other Genitourinary: No Dysuria, No Frequency, No Incontinence, No Hematuria, No Retention, No Other Musculoskeletal: No other, No neck pain, No shoulder pain, No arm pain; back pain (low back/buttock pain); No hand pain, No leg pain, No foot pain Skin: No Rash, No Lesions, No Jaundice, No Bruising, No Other Objective Vitals Vital Signs Date Time Temp Pulse Resp B/P (MAP) Pulse Ox O2 Delivery O2 Flow Rate FiO2 08/19/24 08:40 98.3 94 19 110/64 (79) 97 98.3 08/18/24 20:00 Room Air* 0 21 Intake/Output Intake and Output 08/19/24 07:00 Intake Total 1200 ml Balance 1200 ml Intake Oral 1000 ml IV Total 200 ml # Voids 7 General Appearance: Alert, Oriented X3 Lungs: Clear to auscultation Cardiovascular: Regular rate, Normal S1, Normal S2 Skin: Other (drug induce urtica) Medications Current Medications Medications Dose Ordered Sig/Canelo Route Start Time Stop Time Status Last Admin Dose Admin Sodium Chloride 10 ml Q8HR IV 08/11/24 22:00 08/19/24 06:49 10 ML Ondansetron HCl 4 mg Q4HP PRN IV 08/11/24 15:30 08/17/24 19:21 4 MG Morphine Sulfate 2 mg Q4HPRN PRN IV 08/11/24 15:30 08/12/24 08:05 2 MG Insulin Human Regular AC SC 08/11/24 17:00 08/18/24 17:10 2 UNITS Dextrose 50 ml UD PRN IV 08/11/24 15:30 Acetaminophen/ Hydrocodone Bitart 1 tab Q4HP PRN PO 08/11/24 15:30 08/14/24 16:20 1 TAB Acetaminophen 650 mg Q6HP PRN PO 08/11/24 15:30 08/19/24 05:01 650 MG Diagnostic Test (Pha) 1 strip ACHS 08/11/24 17:00 08/19/24 06:51 1 STRIP Vancomycin HCl 0 ml @ 0 mls/hr UD IV 08/11/24 16:00 Atorvastatin Calcium 20 mg HS PO 08/11/24 22:00 08/18/24 21:41 20 MG Losartan Potassium 25 mg DAILY PO 08/12/24 10:00 08/15/24 10:49 25 MG Polyethylene Glycol 17 gm DAILYPRN PRN PO 08/12/24 16:15 08/14/24 16:20 17 GM Docusate Sodium 100 mg BIDPRN PRN PO 08/12/24 16:15 08/19/24 01:33 100 MG Vancomycin HCl 250 ml @ 250 mls/hr Q12H IV 08/13/24 18:00 08/19/24 05:55 250 MLS/HR Triamcinolone Acetonide 1 applic BID TOP 08/17/24 22:00 08/18/24 21:34 1 APPLIC Diphenhydramine HCl 25 mg Q6HP PRN IV 08/17/24 12:00 08/17/24 21:31 25 MG Insulin Human Regular HS SC 08/17/24 23:30 08/17/24 23:41 2 UNITS Loratadine 10 mg DAILY PO 08/18/24 12:00 08/18/24 13:11 10 MG Metronidazole 100 ml @ 100 mls/hr Q8HR IV 08/18/24 22:00 08/18/24 21:33 100 MLS/HR Laboratory Results Laboratory Tests 08/19/24 05:57 Chemistry Test 08/19/24 05:57 Calcium Level 8.1 mg/dL (8.7-10.4) L Urinalysis Test 08/11/24 13:44 Urine Color Light-yellow (Yellow) Urine Clarity Clear (Clear) Urine pH 6.0 (5.0-9.0) Urine Specific [place] 1.050 (1.001-1.035) Urine Protein Trace (Negative) H Urine Ketones Negative (Negative) Urine Blood Negative /uL (Negative) Urine Nitrite Negative (Negative) Urine Bilirubin Negative (Negative) Urine Urobilinogen Normal mg/dL (Negative) Urine Leukocyte Esterase Negative /uL (Negative) Urine RBC 55 /hpf (0 - 3) Urine Microscopic WBC 23 /HPF (0-3) H Urine Squamous Epithelial Cells Few /hpf (<5) Urine Bacteria None seen /hpf (None Seen) Urine Glucose Normal mg/dL (Normal) Microbiology Microbiology Date/Time Source Procedure Growth Status 08/12/24 12:20 Aspirate Gram Stain - Final Complete 08/12/24 12:20 Body Fluid Culture - Final Escherichia coli Escherichia coli#2 Complete 08/11/24 13:00 Blood Blood Culture - Final NO GROWTH AFTER 5 DAYS OF INCUBATION. Complete Labs and/or images reviewed: Labs reviewed by me Assessment/Plan Assessment/Plan #Perirectal abscess, #sepsis due to perirectal abscess continue IV abx s/p drainage by surgery 08/12. Local wound care #Uncontrolled diabetes type 2 with hyperglycemia #Hypertension # low-grade fever # rash on chest Plan: Continuing current management. Linen of the bed has been change. Continue triamcinolone cream to apply to the chest p.r.n. for itching and Benadryl 25 mg IV q.6 hours p.r.n. for itching. Tylenol p.r.n. for temperature greater than 100.5. Continuing IV antibiotic. Continue antihistamine Claritin. We will follow up repeat blood culture and urine culture. We will consult IR for reinsert percutaneous drainage. Discharge planning with oral antibiotic. This medical document was created using an electronic medical record system with [employer] direct computerized dictation system. Although this document has been carefully reviewed, there may still be some phonetic and typographical errors. These areas are purely typographical due to imperfections of the software programs, and do not reflect any compromise in the patient's medical care. Plan discussed with: Patient, Son My Orders Orders - LEE,NARCISO O MD Procedure Category Date Status Time Loratadine Tablet PHA 08/18/24 In Process (Claritin Tablet) 12:00 Metronidazole PHA 08/18/24 In Process 500mg/100ml (Flagyl 22:00 Blood Culture YASMINE 08/18/24 In Process 14:09 Urine Bacterial YASMINE 08/18/24 Logged Culture 14:09 * Wound Consult CONS 08/19/24 Transmitted * Radiologist Consult CONS 08/19/24 Transmitted 11:23 Date of Service: Aug 19, 2024 Billing Provider: NARCISO LEE MD Common Visit Codes: [id number] INP/OBS CARE(HIGH) NARCISO LEE MD Aug 19, 2024 11:26
--- NOTE | 2024-08-19 14:47 | DVH ---
CT ABDOMEN AND PELVIS WITHOUT CONTRAST CLINICAL HISTORY: PERITONEAL ABSCESS TECHNIQUE: Multiple contiguous axial images of the abdomen and pelvis without intravenous contrast. T he images were reformatted degenerate coronal and sagittal reconstructions. All CT scans at this medical facility are performed using dose modulation techniques as appropriate t o a performed exam including the following:Automated exposure control was utilized; adjustment of the MA and/or KV according to patient size; and use of iterative reconstruction technique. Radiation Dose Information: CT Dose: CTDI volume is 14.89 mGy. Dose-length product is 963.74 mGy*cm Comparison: CT CT AB PEL WO CON-NO ORAL OR IV on DOS: 08/11/24 FINDINGS: Evaluation of the abdomen and pelvis is limited without intravenous contrast. There has been significant interval decrease in previously seen abscess in the inferior pelvis adjace nt to the rectum and anus. There is small residual perirectal fluid collection measuring 3.4 x 1.9 cm . There is no significant fluid collection in the perineum. There is diffuse fatty infiltration of the liver. The gallbladder, pancreas, kidneys, adrenal glan ds, and spleen appear within normal limits. There is no gross evidence of abdominal lymphadenopathy. There is no free fluid or free air. The stomach grossly appears unremarkable. The small and large bowel loops demonstrate normal caliber . A normal appearing appendix is seen in the right lower quadrant abdomen. The abdominal aorta and IVC appear within normal limits. The bladder appears unremarkable for the degree of distention. Pelvic organ appears within normal esparza its. There is no gross evidence of a pelvic mass. Lung bases are clear. There is no acute osseous abnormality. IMPRESSION: 1. Significant interval decrease in size of previously seen abscess in the inferior pelvis. There is small residual perirectal fluid collection measuring 3.4 x 1.9 cm. There is no significant perineal fluid collection. 2. Hepatic steatosis. HS:Y
--- NOTE | 2024-08-19 17:05 | MEDREC ---
[facility] Intervention Section I [facility] Intervention: Review courses of therapy (ACUTE KIDNEY INJURY - PLEASE CONSIDER SWITCHING VANCOMYCIN TO ANOTHER ANTIBIOTIC) VIDAL BERNAL PHARMACIST Aug 19, 2024 17:05
[2024-08-20 01:00] VITALS: BP 116/72; PULSE 94; RESP 18; TEMP 98.4; O2SAT 95
[2024-08-20 05:00] VITALS: BP 116/70; PULSE 113; RESP 20; TEMP 99.4; O2SAT 96
[2024-08-20 06:15] LABS: Basophils # (auto) 0 10 ^3/uL (0-0.2); Basophils % (auto) 0.1 % (0.0-2.0); Eosinophils # (auto) 0.3 10 ^3/uL (0-0.8); Eosinophils % (auto) 3.6 % (0.0-7.0); Hematocrit 38.1 % (41.0-53.0); Lymphocytes % (auto) 32.6 % (10.0-50.0); Mean Corpuscular Hemoglobin 31.2 pg (28.0-32.0); Mean Corpuscular Hgb Conc. 34.2 g/dL (32.0-36.0); Mean Corpuscular Volume 91.2 fL (80.0-100.0); Monocytes # (auto) 0.9 10 ^3/uL (0-1.3); Monocytes % (auto) 9.2 % (0.0-12.0); Neutrophils # (auto) 5.1 10 ^3/uL (1.6-8.6); Neutrophils % (auto) 54.5 % (37.0-80.0); Nucleated Red Blood Cells % 0.1 %; Platelet Count (auto) 415 10^3/uL (140-450); Red Blood Cells 4.18 10^6/uL (4.5-5.90); Red Cell Distribution Width 13.7 % (11.8-14.3); White Blood Cell 9.3 10^3/uL (4.4-10.8)
[2024-08-20 06:16] LABS: Chloride 99 mmol/L (98-107)
[2024-08-20 06:17] LABS: Anion Gap 12 (5-15); Calcium 8.7 mg/dL (8.7-10.4); Carbon Dioxide 25 mmol/L (20-31)
[2024-08-20 06:22] LABS: BUN/Creatinine Ratio 7.3 (10.0-20.0); Blood Urea Nitrogen 14 mg/dL (9-23)
[2024-08-20 06:36] LABS: Glucose 134 mg/dL (74-106); Potassium 3.3 mmol/L (3.5-5.1); Sodium 136 mmol/L (136-145)
[2024-08-20 08:00] VITALS: PULSE 107; RESP 18; O2SAT 95
[2024-08-20 08:54] VITALS: BP 118/66; PULSE 107; RESP 18; TEMP 98.9; O2SAT 95
[2024-08-20] MEDS ORDERED: LORA-483 PO (11:48)
[2024-08-20] MEDS ORDERED: METR-344 PO (11:48)
[2024-08-20] MEDS ORDERED: DIPH25CA66 PO (11:48)
[2024-08-20] MEDS ORDERED: BACDST PO (11:48)
[2024-08-20] MEDS ORDERED: TRIO1TP TOP (11:48)
[2024-08-20] MEDS ORDERED: HYDR-4902 PO (11:48)
--- NOTE | 2024-08-20 11:51 | DVHDS2 ---
Discharge Summary Date of Admission Aug 11, 2024 at 15:13 Date of Discharge: Aug 20, 2024 Admitting Diagnosis #Perirectal abscess, #sepsis due to perirectal abscess #Uncontrolled diabetes type 2 with hyperglycemia #Hypertension Labs/Diagnostic Data: Laboratory Results Test 08/20/24 11:21 08/20/24 05:51 08/18/24 06:13 08/17/24 18:22 White Blood Count 9.3 10^3/uL (4.4-10.8) Red Blood Count 4.18 10^6/uL (4.5-5.90) Hemoglobin 13.0 g/dL (13.5-17.5) Hematocrit 38.1 % (41.0-53.0) Mean Corpuscular Volume 91.2 fL (80.0-100.0) Mean Corpuscular Hemoglobin 31.2 pg (28.0-32.0) Mean Corpuscular Hemoglobin Concent 34.2 g/dL (32.0-36.0) Red Cell Distribution Width 13.7 % (11.8-14.3) Platelet Count 415 10^3/uL (140-450) Mean Platelet Volume 7.2 fL (6.9-10.8) Neutrophils (%) (Auto) 54.5 % (37.0-80.0) Lymphocytes (%) (Auto) 32.6 % (10.0-50.0) Monocytes (%) (Auto) 9.2 % (0.0-12.0) Eosinophils (%) (Auto) 3.6 % (0.0-7.0) Basophils (%) (Auto) 0.1 % (0.0-2.0) Neutrophils # (Auto) 5.1 10 ^3/uL (1.6-8.6) Lymphocytes # (Auto) 3.0 10 ^3/uL (0.4-5.4) Monocytes # (Auto) 0.9 10 ^3/uL (0-1.3) Eosinophils # (Auto) 0.3 10 ^3/uL (0-0.8) Basophils # (Auto) 0 10 ^3/uL (0-0.2) Nucleated Red Blood Cells 0.1 % Sodium Level 136 mmol/L (136-145) Potassium Level 3.3 mmol/L (3.5-5.1) Chloride Level 99 mmol/L (98-107) Carbon Dioxide Level 25 mmol/L (20-31) Anion Gap 12 (5-15) Blood Urea Nitrogen 14 mg/dL (9-23) Creatinine 1.91 mg/dL (0.700-1.30) Glomerular Filtration Rate Calc 40 mL/min (>90) BUN/Creatinine Ratio 7.3 (10.0-20.0) Serum Glucose 134 mg/dL (74-106) Calcium Level 8.7 mg/dL (8.7-10.4) Random Vancomycin Level 16.2 ug/mL (5-10) Differential Total Cells Counted 100.0 (100) Neutrophils % (Manual) 60 (37.0-80.0) Band Neutrophils % (Manual) 5 Lymphocytes % (Manual) 25 (10.0-50.0) Monocytes % (Manual) 10 (0-12) Eosinophils % (Manual) 0 (0-7) Basophils % (Manual) 0 (0.0-2.0) Metamyelocytes % (manual) 0 Myelocytes % (Manual) 0 Promyelocytes % (Manual) 0 Blast Cells % (Manual) 0 Reactive Lymphocytes 0 Platelet Estimate Adequate Vancomycin Level Trough 13.4 ug/mL (5-10) Test 08/12/24 12:20 08/12/24 05:05 08/11/24 13:44 08/11/24 13:00 Body Fluid Glucose 66 mg/dL (.) Total Bilirubin 0.9 mg/dL (0.2-1.0) Aspartate Amino Transferase (AST) 69 U/L (13-40) Alanine Aminotransferase (ALT) 80 U/L (7-40) Alkaline Phosphatase 156 U/L (46-116) Total Protein 6.2 g/dL (5.7-8.2) Albumin 3.6 g/dL (3.2-4.8) Urine Color Light-yellow (Yellow) Urine Clarity Clear (Clear) Urine pH 6.0 (5.0-9.0) Urine Specific [place] 1.050 (1.001-1.035) Urine Protein Trace (Negative) Urine Ketones Negative (Negative) Urine Blood Negative /uL (Negative) Urine Nitrite Negative (Negative) Urine Bilirubin Negative (Negative) Urine Urobilinogen Normal mg/dL (Negative) Urine Leukocyte Esterase Negative /uL (Negative) Urine RBC 55 /hpf (0 - 3) Urine Microscopic WBC 23 /HPF (0-3) Urine Squamous Epithelial Cells Few /hpf (<5) Urine Bacteria None seen /hpf (None Seen) Urine Glucose Normal mg/dL (Normal) Lactic Acid Level 1.4 mmol/L (0.4-2.0) Test 08/11/24 10:34 Hemoglobin A1c 8.6 % A1C (<5.7) Other Laboratory Tests 08/20/24 05:51 Brief Hx & Hospital Course: This is a 59 years old male with past medical history hypertension, hyperlipidemia, diabetes, arthritis come because of lower back and buttock pain. Patient had painful urination and back pain. Patient had a CT scan abdomen pelvis done in the hospital reveal a large perirectal abscess. Patient subsequently had the drain placed by interventional radiologist. This drain lots of pus. One day prior to discharge the patient drain fell off. IR was consulted again for reinsert the drainage however based on ultrasound Dr. Alexandre, interventional radiologist stated that he did not need anymore drainage reinserted because the abscess is resolved. He was put on IV antibiotic with vancomycin and Zosyn. Culture of the abscess showed E coli that is sensitive to Zosyn. The patient however suffering from a drug induced urticaria and fever for couple day prior to discharge. Zosyn was discontinuing and the patient continuing on vancomycin and Flagyl 500 mg IV t.i.d. the patient also was given triamcinolone cream, Benadryl, Claritin. Today he does not have fever. Repeat blood culture and urine cultures negative for any growth. The patient was able to ambulate without pain. No abdominal pain. I am discharge the patient home. Advised the patient to follow up with primary care physician 1-2 weeks. Patient will continuing antibiotic for 14 day with Bactrim DS and also with Flagyl. Activity as tolerated. Diet per home diet. Physical exam: HEENT: Normocephalic atraumatic pupils equal react to light and accommodation. Extraocular muscles intact, conjunctiva pink, oropharynx moist, no thrush, no exudate. Lymphatic: No lymphadenopathy Cardiovascular exam: S1, S2 was heard. No murmurs, rubs, gallops Lung: Clear on auscultation bilaterally, no wheeze, rale, rhonchi. GI: Abdominal soft, nondistended, nontenderness, positive bowel sounds. Extremity: No crepitus, cyanosis, edema. Pedal pulses present bilateral. Full range of motion. Skin: Normal turgor, no rash. Psych: Alert, oriented x3. Neurology: No focal deficits, cranial nerve II to XII grossly intact. This medical document was created using an electronic medical record system with [employer] direct computerized dictation system. Although this document has been carefully reviewed, there may still be some phonetic and typographical errors. These areas are purely typographical due to imperfections of the software programs, and do not reflect any compromise in the patient's medical care. Condition at Discharge: Stable Final Diagnosis/Problems List #Perirectal abscess, #sepsis due to perirectal abscess s/p drainage by surgery 08/12. Local wound care #Uncontrolled diabetes type 2 with hyperglycemia #Hypertension # low-grade fever # rash on chest Discharge Disposition: Home Discharge Instruct/Medications Diet: Cardiac 2g Na,low cholest Activity: No Restrictions, As Tolerated Follow Up/Referral: pcp 1-2 weeks Discharge Statement: "Patient was advised to return to the ER or call 911 if any headaches, dizziness, shortness of breath, chest pain, abdominal pain, bleeding, fevers, or worsening of medical condition. Patient was counseled about treatment plan, medications, possible side effects, patientverbalized understanding. All questions were answered to the best of my ability. This discharge took greater then 30 minutes in planning, reviewing documentation, counseling the patient, and discussing with other team members." ASSESSMENT ASSESSMENT Assessment perirectal abcess Date of Service: Aug 20, 2024 Billing Provider: NARCISO LEE MD Common Visit Codes: 87389-CAB/OBS DISCH DAY >30min NARCISO LEE MD Aug 20, 2024 11:51
[2024-08-20 13:00] VITALS: BP 114/72; PULSE 96; RESP 18; TEMP 98; O2SAT 97
== END 2024-08-20 16:48 | disposition home or self-care (01) | DRG 720 ==
LOC: ER 10:09 → OVERFLOW 15:13 → ER 15:14 → TELE-EAST 08-12 05:35 → EAST 08-14 13:21
PROVIDERS: ADMIT Internal Medicine; ATTEND Internal Medicine
PROC: 0D9P30Z Drainage of Rectum with Drainage Device, Percutaneous Approach (ICD-10-PCS; principal; 2024-08-12)
DX: A41.9 Sepsis, unspecified organism (principal); K61.1 Rectal abscess; E11.65 Type 2 diabetes mellitus with hyperglycemia; I10 Essential (primary) hypertension; L50.9 Urticaria, unspecified; E78.5 Hyperlipidemia, unspecified; Z80.8 Family history of malignant neoplasm of other organs or systems
CPT/HCPCS: 10005; 36415; 72192; 74176; 74177; 77012; 80048; 80053; 80202; 81001; 82565; 82962; 83036; 83605; 85007; 85025; 85027; 87040; 87077; 87186; 87205; 96365; 96372; 96375; C1729; G0378; J1815; J1885; J2003; J2250; J2405; J2543; J3490